=== PATIENT | female | born 1965 | race Caucasian/White ===

== ENCOUNTER 2019-01-12 09:57 | Emergency (ER) | payer BC ==
--- OUTSIDE RECORDS SUMMARY | 2019-01-12 10:06 | XMS REPORT | Continuity of Care Document ---
:1965 External Reference #:[id number] Author Name Adrienne Alcocer M.D. Address [address] [place] [address] Care Team Providers Name Role Phone Eliz Garcia RPAC Care Team Information Tafe Teacher Unavailable Eliz Garcia RPAC Primary Care Physician Unavailable Payers Date Identification Numbers Payment Provider Subscriber Expires: 2018 Policy Number: [id number] Annalee Baptsite Group Number: [id number] [address] PayID: [id number] [place] [id number] Policy Number: [id number] Annalee Padron Group Number: [id number] [address]: [id number] DE[place] Re[place] [id number] Expires: 2017 Policy Number: [id number] Annalee Baptiste Group Name: Annalee Rasmussen [facility] [address] PayID: [id number] [place] [id number] Problems Active Problems Provider Date Type 2 diabetes mellitus Charlie Myers FNP Onset: 12/08/2014 Note: ~2014 Benign essential hypertension Deyanira Bhagat NP Onset: 11/11/2011 Morbid obesity Charlie Myers FNP Onset: 12/06/2014 Hyperlipidemia Deyanira Bhagat NP Onset: 11/11/2011 Microscopic hematuria Eliz Garcia RPAC Onset: 02/26/2013 Note: (R) kidney calculus History of malignant neoplasm of tongue Eliz Garcia RPAC Onset: 2014 Note: SCC 2010 Steatosis of liver Eliz Garcia RPAC Onset: 03/19/2016 [facility]: 02/04/2017 Note: noted 2016, likely due to DM [facility] Onset: 03/19/2016 Note: extensive plaques Internal hemorrhoids [facility] Onset: 03/19/2016 Diverticulosis of colon without [facility] Onset: 03/19/2016 diverticulitis Methicillin resistant Staphylococcus aureus [facility] Onset: infection Note: 05/2016, groin wound Kidney stone Adrienne Alcocer M.D. Onset: 06/16/2017 Cholelithiasis without obstruction [facility] Onset: 06/30/2017 Note: noted on CT 06/2017 Lipoma of terminal spinal cord [facility] Onset: 08/14/2017 Note: noted 2016 Benign neoplasm of adrenal gland [facility] Onset: 06/26/2017 Note: left, noted 2012 Low back pain [facility] Onset: 09/29/2017 Note: sciatica (L) side, since 03/2017 Combined form of senile cataract Serafin Akers MD Onset: 10/23/2017 Tear film insufficiency Serafin Akers MD Onset: 10/23/2017 Abnormal liver function Onset: 11/03/2018 Inactive Problems Excessive and frequent menstruation Charlie Myers FNP Onset: 2013 Inactive: 03/19/2016 Resolved Problems Tobacco user Deyanira Bhagat, ANASTASIA Onset: 11/11/2011 Resolved: 03/19/2016 Family History Date Family Member(s) Observation Comments Father Colon Cancer Father Hypertension Father Alive Father Cataracts Mother Diabetes Mother Hypertension Mother Alive Mother Cataracts First Brother Diabetes required amputation First Brother CAD sudden at 41 yrs old First Sister Alive Social History Type Date Description Comments Sex Unknown Marital Status Occupation Disabled Tobacco Use Start: Unknown End: Quit 10/2015 Unknown ETOH Use Drinks Alcoholic Beverages Rarely Recreational Drug Use Denies Drug Use Tobacco Use Start: Unknown End: Patient is a former Smoked 3/4 ppd x 30 Unknown smoker years Quit 2 1/2 years ago Smoking Status Reviewed: 01/04/19 Patient is a former Smoked 3/4 ppd x 30 smoker years Quit 2 1/2 years ago Exercise Type/Frequency Exercises regularly Exercise Type/Frequency Physical Therapy Allergies, Adverse Reactions, Alerts Active Allergies Reaction Severity Comments Date Augmentin Total body rash 06/18/2017 Inactive Allergies NKDA 12/06/2014 Medications Active Medications SIG Qnty Indications Ordering Date Provider Rosuvastatin Calcium 1 by mouth every 30tabs Sanya, 11/03/2018 day MD Gregory 20mg Tablets Glipizide ER 1 tab by mouth Sanya, 11/03/2018 2.5mg tid MD Gregory Tablets ER 24HR Freestyle Lancets for one to three 100units Robbin Dawkins, 09/11/2018 Misc times a day use M.D. Freestyle Lancets for one to three 100units Robbin Dawkins, 09/11/2018 Misc times a day use M.D. Rosuvastatin Calcium 1 by mouth every 90tabs Robbin Dawkins, 06/16/2018 day M.D. 20mg Tablets Pioglitazone HCL 1 by mouth every 90tabs Robbin Dawkins, 08/04/2017 30mg day M.D. Tablets Metformin HCL take one tablet 180tabs DawkinsRobbin howell, 08/04/2017 1000mg by mouth twice a M.D. Tablets day Trulicity inject 1.5 ml 2ml Robbin Dawkins, 05/20/2017 0.75mg/0.5ML once weekly as M.D. Solution Pen-Inject directed Freestyle Lite Blood use as 1un Robbin Dawkins, 12/03/2016 Glucose Monitoring directed........ M.D. System .:::........dx Device e11.65 Glipizide ER take 1 tablet by 90tabs Robbin Dawkins, 12/03/2016 2.5mg mouth three M.D. Tablets ER 24HR times a day Benazepril HCL one by mouth 90tabs I10 Robbin Dawkins, 04/24/2011 40mg daily M.D. Tablets Ibuprofen 1 Tab Q 8 HR as Unknown 600mg Tablets Needed. History Medications Rollator Walker for daily 1units M47.896 Dawkins, 01/13/2018 - With use......... heavy Heidi Siegel 06/13/2018 Seat/ Hand Brake duty model Physical Therapy Cervicalgia, M54.2 Dawkins, 10/20/2017 - please evaluate Heidi Siegel 12/03/2017 and treat Terconazole For intravaginal 20gm Dawkins, 06/17/2017 - 0.8% Cream use qhs X 3 nights Heidi Siegel Unknown Fluconazole 1 tab by mouth 1tabs Dawkins, 06/17/2017 - 150mg today for yeast Heidi Siegel Unknown Tablets vaginitis Amoxicillin/Clavulana 1 tab by mouth 14tabs J34.0 Dawkins, 06/03/2017 - te Potassium every 12 hours Heidi Siegel 06/18/2017 875-125mg with food Tablets Cyclobenzaprine HCL 1 by mouth three Dawkins, 05/06/2017 - times a day as Heidi Siegel Unknown 10mg Tablets needed muscle spasms Work Note please excuse from M62.830 Dawkins, 05/06/2017 - work due to Heidi Siegel 06/13/2018 ongoing back and leg pain...pain treatments ongoing. recheck in 8 weeks Freestyle Lite Test to check finger 100units Juancho, 12/03/2016 - stick glucose, one Heidi Siegel 05/06/2017 Strips - three times a day as needed Freestyle Lancets for one to three 100units Juancho, 12/03/2016 - Misc times a day use Heidi Siegel 05/06/2017 Lancet Device for daily use 1units Juancho, 12/03/2016 - Misc Heidi Siegel 05/06/2017 Note For Work Allow Vivek to have Juancho, 11/26/2016 - water bottle at Heidi Siegel 05/06/2017 work station Metformin HCL ER 1 tab by mouth 60tabs Dawkins, 07/24/2016 - 750mg twice a day Heidi Siegel 08/04/2017 Tablets ER 24HR Simvastatin 1 by mouth every 90tabs E78.5 Dawkins, 07/18/2015 - 40mg day...on hold Barry Siegel. Unknown Tablets 01/2017 Metformin HCL take one tablet by [place] 12/08/2014 - 500mg mouth once a day E., DO 07/24/2016 Tablets Cyclobenzaprine HCL 1 by mouth three Unknown - times a day as Unknown 10mg Tablets needed muscle spasms Fluconazole 1 by mouth every Unknown - 100mg day until gone 06/17/2017 Tablets Immunizations CPT Code Status Date Vaccine Reaction Lot # 43199 Given 06/12/2018 Influenza Virus Vaccine, Quadrivalent, 36 [id number] Mos+, .[id number] 39602 Given 06/30/2017 Influenza Virus Vaccine Quadrivalent Iiv4 none [id number] [address] Given 07/23/2016 Influenza Virus Vaccine Split Virus Use [id number] For Individual 3Yr Older [id number] Given 07/18/2015 Influenza Vaccine (Fluzone) Age 3 And [id number] Older 31120 Given 09/06/2014 flu vaccination 47231 Given 09/24/2013 flu vaccination 90934 Given 06/11/2005 Tetnus Injection 87413 Given 03/03/1995 DT Vaccine Younger Than 7 Yrs Vital Signs Date Vital Result Comment 01/12/2019 9:16am BP Systolic 123 mmHg BP Diastolic 76 mmHg Body Temperature 98.5 F Heart Rate 90 /min Respiratory Rate 20 /min Height 61.5 inches 5'1.50" Weight 301.50 lb BMI (Body Mass Index) 56.0 kg/m2 BSA (Body Surface Area) 2.26 m2 [place] body weight in kilograms 49 kg O2 % BldC Oximetry 92 % Ra Pain Level 0 12/15/2018 1:05pm Heart Rate 88 /min Height 61.5 inches Weight 299.50 lb BMI (Body Mass Index) 55.7 kg/m2 11/19/2018 2:49pm BP Systolic 146 mmHg BP Diastolic 80 mmHg Heart Rate 79 /min Weight 303.25 lb 11/03/2018 2:55pm Heart Rate 92 /min Height 61.5 inches Weight 302.00 lb BMI (Body Mass Index) 56.1 kg/m2 09/11/2018 10:01am BP Systolic Sitting Left Arm 118 mmHg BP Diastolic Sitting Left Arm 78 mmHg Body Temperature 98.3 F Heart Rate 83 /min Respiratory Rate 20 /min Height 60 inches 5'0" Weight 293.00 lb BMI (Body Mass Index) 57.2 kg/m2 BSA (Body Surface Area) 2.20 m2 [place] body weight in kilograms 45 kg O2 % BldC Oximetry 96 % Ra 06/12/2018 10:47am BP Systolic 175 mmHg BP Diastolic 78 mmHg Body Temperature 97.8 F Heart Rate 101 /min Respiratory Rate 18 /min Height 60 inches 5'0" Weight 289.00 lb BMI (Body Mass Index) 56.4 kg/m2 BSA (Body Surface Area) 2.18 m2 [place] body weight in kilograms 45 kg O2 % BldC Oximetry 95 % 03/02/2018 11:27am BP Systolic Sitting Right Arm 126 mmHg BP Diastolic Sitting Right Arm 78 mmHg Heart Rate 82 /min reg Respiratory Rate 24 /min Height 60 inches 5'0" Weight 282.00 lb BMI (Body Mass Index) 55.1 kg/m2 BSA (Body Surface Area) 2.16 m2 [place] body weight in kilograms 45 kg O2 % BldC Oximetry 98 % ra 01/13/2018 11:33am BP Systolic Sitting Right Arm 136 mmHg BP Diastolic Sitting Right Arm 62 mmHg Body Temperature 98.5 F Heart Rate 100 /min reg Respiratory Rate 30 /min Height 60 inches 5'0" Weight 281.00 lb BMI (Body Mass Index) 54.9 kg/m2 BSA (Body Surface Area) 2.16 m2 [place] body weight in kilograms 45 kg O2 % BldC Oximetry 98 % ra 01/13/2018 9:36am BP Systolic 133 mmHg BP Diastolic 83 mmHg Body Temperature 99.3 F Heart Rate 78 /min Respiratory Rate 16 /min Height 60 inches 5'0" Weight 282.00 lb BMI (Body Mass Index) 55.1 kg/m2 BSA (Body Surface Area) 2.16 m2 [place] body weight in kilograms 45 kg O2 % BldC Oximetry 96 % Pain Level 0 01/13/2018 9:28am Height 60 inches 5'0" Weight 282.00 lb BMI (Body Mass Index) 55.1 kg/m2 BSA (Body Surface Area) 2.16 m2 [place] body weight in kilograms 45 kg Pain Level 0 12/01/2017 12:20pm BP Systolic Sitting Left Arm 132 mmHg BP Diastolic Sitting Left Arm 67 mmHg Body Temperature 98.2 F Heart Rate 83 /min Respiratory Rate 20 /min Height 60 inches 5'0" Weight 273.00 lb BMI (Body Mass Index) 53.3 kg/m2 BSA (Body Surface Area) 2.13 m2 [place] body weight in kilograms 45 kg O2 % BldC Oximetry 95 % 10/20/2017 10:18am BP Systolic Sitting Left Arm 130 mmHg BP Diastolic Sitting Left Arm 78 mmHg Heart Rate 76 /min Height 60 inches 5'0" Weight 270.00 lb BMI (Body Mass Index) 52.7 kg/m2 BSA (Body Surface Area) 2.12 m2 [place] body weight in kilograms 45 kg O2 % BldC Oximetry 97 % 09/08/2017 11:06am BP Systolic Sitting Right Arm 110 mmHg BP Diastolic Sitting Right Arm 70 mmHg Heart Rate 79 /min Weight 262.00 lb [place] body weight in kilograms 504 kg O2 % BldC Oximetry 97 % 07/28/2017 10:12am BP Systolic 138 mmHg BP Diastolic 94 mmHg Heart Rate 84 /min Respiratory Rate 16 /min Weight 264.00 lb O2 % BldC Oximetry 98 % 06/30/2017 11:03am BP Systolic Sitting Left Arm 138 mmHg BP Diastolic Sitting Left Arm 76 mmHg Heart Rate 81 /min Respiratory Rate 24 /min Weight 263.00 lb O2 % BldC Oximetry 98 % 06/16/2017 1:32pm BP Systolic 144 mmHg BP Diastolic 85 mmHg Body Temperature 98.3 F 36.8c Heart Rate 105 /min Respiratory Rate 20 /min Weight 263.50 lb O2 % BldC Oximetry 96 % 06/03/2017 11:40am BP Systolic Sitting Right Arm 138 mmHg BP Diastolic Sitting Right Arm 82 mmHg Heart Rate 79 /min Respiratory Rate 18 /min Height 60 inches 5'0" Weight 262.00 lb BMI (Body Mass Index) 51.2 kg/m2 BSA (Body Surface Area) 2.09 m2 [place] body weight in kilograms 45 kg O2 % BldC Oximetry 96 % 05/20/2017 10:11am BP Systolic Sitting Right Arm 148 mmHg BP Diastolic Sitting Right Arm 100 mmHg Heart Rate 86 /min Respiratory Rate 18 /min Height 60 inches 5'0" Weight 256.00 lb BMI (Body Mass Index) 50.0 kg/m2 BSA (Body Surface Area) 2.07 m2 [place] body weight in kilograms 45 kg O2 % BldC Oximetry 98 % 05/06/2017 12:04pm BP Systolic Sitting Right Arm 138 mmHg BP Diastolic Sitting Right Arm 86 mmHg Heart Rate 80 /min Height 60 inches 5'0" Weight 258.00 lb BMI (Body Mass Index) 50.4 kg/m2 BSA (Body Surface Area) 2.08 m2 [place] body weight in kilograms 45 kg O2 % BldC Oximetry 97 % ra 04/25/2017 2:09pm BP Systolic Sitting Right Arm 130 mmHg BP Diastolic Sitting Right Arm 78 mmHg Heart Rate 97 /min Height 60 inches 5'0" Weight 258.00 lb BMI (Body Mass Index) 50.4 kg/m2 BSA (Body Surface Area) 2.08 m2 [place] body weight in kilograms 45 kg O2 % BldC Oximetry 98 % Ra 02/04/2017 11:12am BP Systolic Sitting Right Arm 138 mmHg BP Diastolic Sitting Right Arm 78 mmHg Heart Rate 90 /min Height 60 inches 5'0" Weight 256.12 lb BMI (Body Mass Index) 50.0 kg/m2 BSA (Body Surface Area) 2.07 m2 [place] body weight in kilograms 45 kg O2 % BldC Oximetry 98 % 11/26/2016 9:28am BP Systolic Sitting Right Arm 138 mmHg BP Diastolic Sitting Right Arm 72 mmHg Height 60 inches 5'0" Weight 261.12 lb BMI (Body Mass Index) 51.0 kg/m2 BSA (Body Surface Area) 2.09 m2 07/23/2016 10:21am BP Systolic Sitting Right Arm 172 mmHg BP Diastolic Sitting Right Arm 92 mmHg Height 60 inches 5'0" Weight 265.12 lb BMI (Body Mass Index) 51.8 kg/m2 BSA (Body Surface Area) 2.10 m2 03/19/2016 9:14am BP Systolic 134 mmHg BP Diastolic 74 mmHg Height 60 inches 5'0" Weight 260.12 lb BMI (Body Mass Index) 50.8 kg/m2 BSA (Body Surface Area) 2.09 m2 07/18/2015 8:54am BP Systolic 144 mmHg BP Diastolic 82 mmHg Height 60 inches 5'0" Weight 243.12 lb BMI (Body Mass Index) 47.5 kg/m2 BSA (Body Surface Area) 2.03 m2 03/21/2015 9:26am BP Systolic 136 mmHg BP Diastolic 78 mmHg Height 60 inches 5'0" Weight 242.00 lb BMI (Body Mass Index) 47.3 kg/m2 BSA (Body Surface Area) 2.02 m2 12/06/2014 9:16am BP Systolic Sitting Left Arm 128 mmHg BP Diastolic Sitting Left Arm 72 mmHg Height 60 inches 5'0" Weight 249.00 lb BMI (Body Mass Index) 48.6 kg/m2 BSA (Body Surface Area) 2.05 m2 09/06/2014 9:05am BP Systolic 126 mmHg BP Diastolic 76 mmHg Body Temperature 98.2 F Weight 248.00 lb 02/22/2014 10:15am BP Systolic 126 mmHg BP Diastolic 76 mmHg Heart Rate 80 /min Respiratory Rate 18 /min Height 61 inches 5'1" Weight 245.00 lb 08/31/2013 11:19am BP Systolic 103 mmHg BP Diastolic 88 mmHg Height 60 inches 5'0" Weight 249.00 lb 12/21/2012 4:10pm Height 61 inches 5'1" Weight 240.00 lb 12/21/2012 4:12pm BP Systolic 124 mmHg BP Diastolic 74 mmHg 11/20/2012 11:36am BP Systolic 118 mmHg BP Diastolic 74 mmHg Heart Rate 88 /min Respiratory Rate 18 /min Height 61 inches 5'1" Weight 238.00 lb 10/20/2012 1:14pm Height 60 inches 5'0" Weight 234.00 lb 10/06/2012 9:47am Height 60 inches 5'0" Weight 236.00 lb 09/21/2012 4:30pm BP Systolic 126 mmHg BP Diastolic 74 mmHg Height 60 inches 5'0" Weight 236.00 lb 11/11/2011 4:19pm BP Systolic 134 mmHg BP Diastolic 86 mmHg Height 60 inches 5'0" Weight 217.00 lb 05/07/2011 11:06am BP Systolic 128 mmHg BP Diastolic 76 mmHg Height 60 inches 5'0" Weight 198.00 lb Results Test Date Facility Test Result H/L Range Note Urine Dipstick 01/12/2019 [facility] Color yellow Yellow Ua Clarity clear Clear Ua Leuko negative Negative Ua Nitrite negative Negative Ua Urobilinogen 0.2 0.2 - 1.0 E.U./dL Ua Protein negatove Negative Ua PH 6.0 Low 6.5-7.5 Ua Blood negative Negative Ua Specific [place] 1.015 1.010-1.030 Ua Ketones negative Negative Ua Bilirubin negative Negative Ua Glucose negative Negative Xray 12/22/2018 [facility] - Radiology Gallbladder stones [address] ([place]) [place] [address] [phone] Urine Dipstick 09/11/2018 [facility] Ua Color yellow Yellow Ua Clarity clear Clear Ua Leuko negative Negative Ua Nitrite negative Negative Ua Urobilinogen 0.2 0.2 - 1.0 E.U./dL Ua Protein negative Negative Ua PH 5.0 Low 6.5-7.5 Ua Blood negative Negative Ua Specific [place] 1.020 1.010-1.030 Ua Ketones negative Negative Ua Bilirubin negative Negative Ua Glucose negative Negative LDL Cholesterol 09/11/2018 [facility] Cholesterol 154 mg/dL <200 1, 2 Profile [address] [place] [address] [phone] Triglycerides 137 mg/dL <150 3 HDL Cholesterol 61 mg/dL >40 4 LDL-Cholesterol 66 mg/dL < 100 5 Liver Function Tests 09/11/2018 [facility] Total Protein 7.3 g/dL N 6.4-8.2 [address] [place] [address] [phone] Albumin 3.7 g/dL N 3.4-5.0 Globulin 3.6 g/dL N 1.9-4.3 Alb/Glob 1.0 ratio Bilirubin,Total 0.4 mg/dL N 0.2-1.0 Bilirubin,Direct 0.1 mg/dL N 0.0-0.2 Bilirubin,Indirect 0.3 mg/dL N 0.0-0.9 Sgot/Ast 33 U/L N 15-37 SGPT/Alt 44 U/L N 12-78 Alkaline Phosphatase 73 U/L N 45-117 Renal Function Panel 09/11/2018 [facility] Glucose 183 mg/dL High 74-106 [address] [place] [address] [phone] BUN 9 mg/dL N 7-18 Creatinine 0.7 mg/dL N 0.6-1.3 Glom Filtration Rate, Estimate >60 mL/min >60 If >60 mL/min >60 6 BUN/Creat 12.8 ratio Sodium 139 mmol/L N 136-145 Potassium 4.3 mmol/L N 3.5-5.1 Chloride 105 mmol/L N 98-107 Carbon Dioxide 28 mmol/L N 21-32 Anion Gap 6 mEq/L Low 8-16 Calcium 9.0 mg/dL N 8.5-10.1 Phosphorous 4.3 mg/dL High 2.5-4.0 Glycohemoglobin 09/11/2018 [facility] Glycohemoglobin 7.1 % High 4.2-6.[address] (A1c) [place] [address] [phone] eAG 157 mg/dL Microalbumin,Random 09/11/2018 [facility] Microalbumin,Urine 9.4 < Urine [address] mg/L 20.0 [place] [address] [phone] LDL Cholesterol 06/12/2018 [facility] Cholesterol 218 High <200 8, Profile [address] mg/dL 9 [place] [address] [phone] Triglycerides 250 mg/dL High <150 10 HDL Cholesterol 55 mg/dL >40 11 LDL-Cholesterol 113 mg/dL < 100 12 Liver Function Tests 06/12/2018 [facility] Total Protein 7.3 g/dL N 6.4-8.[address] [place] [address] [phone] Albumin 3.7 g/dL N 3.4-5.0 Globulin 3.6 g/dL N 1.9-4.3 Alb/Glob 1.0 ratio Bilirubin,Total 0.5 mg/dL N 0.2-1.0 Bilirubin,Direct 0.1 mg/dL N 0.0-0.2 Bilirubin,Indirect 0.4 mg/dL N 0.0-0.9 Sgot/Ast 29 U/L N 15-37 SGPT/Alt 56 U/L N 12-78 Alkaline Phosphatase 80 U/L N 45-117 Renal Function Panel 06/12/2018 [facility] Glucose 191 mg/dL High 74-[address] [place] [address] [phone] BUN 14 mg/dL N 7-18 Creatinine 0.7 mg/dL N 0.6-1.3 Glom Filtration Rate, Estimate >60 mL/min >60 If >60 mL/min >60 13 BUN/Creat 20.0 ratio Sodium 141 mmol/L N 136-145 Potassium 4.1 mmol/L N 3.5-5.1 Chloride 105 mmol/L N 98-107 Carbon Dioxide 27 mmol/L N 21-32 Anion Gap 9 mEq/L N 8-16 Calcium 9.1 mg/dL N 8.5-10.1 Phosphorous 3.6 mg/dL N 2.5-4.0 Glycohemoglobin 06/12/2018 [facility] Glycohemoglobin 6.8 % High 4.2-6.3 [address] (A1c) [place], [place] [id number] [phone] eAG 148 mg/dL Urine Dipstick 06/12/2018 [facility] Ua Color Yellow Yellow Ua Clarity Clear Clear Ua Leuko Negative Negative Ua Nitrite Negative Negative Ua Urobilinogen - Low 0.2 - 1.0 E.U./dL Ua Protein Negative Negative Ua PH 5.0 Low 6.5-7.5 Ua Blood Negative Negative Ua Specific [place] 1.030 1.010-1.030 Ua Ketones Negative Negative Ua Bilirubin Negative Negative Ua Glucose Negative Negative Creatinine 03/09/2018 [facility] Creatinine 0.60 mg/ dL N 0.51-0.95 [phone] Egfr Non- 105.0 >60 Egfr 127.0 >60 15 Laboratory test 03/09/2018 [facility] Blood Urea 11 N 6-24 finding [phone] Nitrogen mg/dL Glycohemoglobin 01/17/2018 [facility] Glycohemoglobin 7.1 % High 4.2-6. 16, A1c [address] (A1c) 3 17 [place], [place] [id number] [phone] eAG 157 mg/dL Basic Metabolic Panel 01/17/2018 [facility] Glucose 116 mg/dL High 74-[address] [place], [place] [id number] [phone] BUN 8 mg/dL N 7-18 Creatinine 0.6 mg/dL N 0.6-1.3 Glom Filtration Rate, Estimate >60 mL/min >60 If >60 mL/min >60 18 BUN/Creat 13.3 ratio Sodium 139 mmol/L N 136-145 Potassium 4.0 mmol/L N 3.5-5.1 Chloride 106 mmol/L N 98-107 Carbon Dioxide 26 mmol/L N 21-32 Anion Gap 7 mEq/L Low 8-16 Calcium 9.6 mg/dL N 8.5-10.1 Laboratory test 01/17/2018 [facility] Thyroid Stim 1.72 uIU/mL N 0.30-4.[address] [place] [address] [phone] Liver Function 01/17/2018 [facility] Total Protein 7.7 g/dL N 6.4-8.[address] [place] [address] [phone] Albumin 3.7 g/dL N 3.4-5.0 Globulin 4.0 g/dL N 1.9-4.3 Alb/Glob 0.9 ratio Bilirubin,Total 0.3 mg/dL N 0.2-1.0 Bilirubin,Direct 0.1 mg/dL N 0.0-0.2 Bilirubin,Indirect 0.2 mg/dL N 0.0-0.9 Sgot/Ast 44 U/L High 15-37 SGPT/Alt 66 U/L N 12-78 Alkaline Phosphatase 72 U/L N 45-117 Microalbumin,Random 01/13/2018 [facility] Microalbumin,Urine 7.7 mg/L < 20.0 Urine [address] [place] [address] [phone] Urine Dipstick 01/13/2018 [facility] Ua Color yellow Yellow Ua Clarity clear Clear Ua Leuko negative Negative Ua Nitrite negative Negative Ua Urobilinogen 0.2 0.2 - 1.0 E.U./dL Ua Protein negative Negative Ua PH 5.0 Low 6.5-7.5 Ua Blood negative Negative Ua Specific [place] 1.030 1.010-1.030 Ua Ketones negative Negative Ua Bilirubin negative Negative Ua Glucose negative Negative Glycohemoglobin 10/20/2017 [facility] Glycohemoglobin 7.9 % High 4.2-6.3 19, A1c [address] (A1c) [address] [place] [address] [phone] eAG 180 mg/dL Renal Function Panel 10/20/2017 [facility] Glucose 131 mg/dL High 74-[address] [place] [address] [phone] BUN 9 mg/dL N 7-18 Creatinine 0.5 mg/dL Low 0.6-1.3 Glom Filtration Rate, Estimate >60 mL/min >60 If >60 mL/min >60 21 BUN/Creat 18.0 ratio Sodium 140 mmol/L N 136-145 Potassium 4.8 mmol/L N 3.5-5.1 Chloride 108 mmol/L High 98-107 Carbon Dioxide 24 mmol/L N 21-32 Anion Gap 8 mEq/L N 8-16 Calcium 9.3 mg/dL N 8.5-10.1 Phosphorous 4.2 mg/dL High 2.5-4.0 Homocyst(E)Ine, 10/20/2017 [facility] Homocyst(e)ine, 7.6 0.0-15.0 22 P/S [address] [facility] P/S umol/[place] [address] [phone] Laboratory test 10/20/2017 [facility] Gamma Glutamyl 74 U/L N 5-85 23 finding [address] [facility] [place] [address] [phone] Liver Function 10/20/2017 [facility] Total Protein 7.1 g/dL N 6.4-8.2 Tests [address] [place] [address] [phone] Albumin 3.5 g/dL N 3.4-5.0 Globulin 3.6 g/dL N 1.9-4.3 Alb/Glob 1.0 ratio Bilirubin,Total 0.3 mg/dL N 0.2-1.0 Bilirubin,Direct < 0.1 mg/dL N 0.0-0.2 Bilirubin,Indirect 0.2 mg/dL N 0.0-0.9 Sgot/Ast 49 U/L High 15-37 SGPT/Alt 78 U/L N 12-78 Alkaline Phosphatase 74 U/L N 45-117 LDL Cholesterol 10/20/2017 [facility] Cholesterol 222 mg/dL High <200 24 Profile [address] [place] [address] [phone] Triglycerides 185 mg/dL High <150 25 HDL Cholesterol 73 mg/dL >40 26 LDL-Cholesterol 112 mg/dL < 100 27 Comprehensive 07/28/2017 [facility] Glucose 222 mg/dL High 74-106 28 Metabolic Panel [address] [place] [address] [phone] BUN 9 mg/dL N 7-18 Creatinine 0.6 mg/dL N 0.6-1.3 Glom Filtration Rate, Estimate >60 mL/min >60 If >60 mL/min >60 29 BUN/Creat 15.0 ratio Sodium 137 mmol/L N 136-145 Potassium 4.5 mmol/L N 3.5-5.1 Chloride 104 mmol/L N 98-107 Carbon Dioxide 27 mmol/L N 21-32 Anion Gap 6 mEq/L Low 8-16 Calcium 9.4 mg/dL N 8.5-10.1 Total Protein 6.9 g/dL N 6.4-8.2 Albumin 3.5 g/dL N 3.4-5.0 Globulin 3.4 g/dL N 1.9-4.3 Alb/Glob 1.0 ratio Bilirubin,Total 0.3 mg/dL N 0.2-1.0 Sgot/Ast 102 U/L High 15-37 SGPT/Alt 169 U/L High 12-78 Alkaline Phosphatase 87 U/L N 45-117 Glycohemoglobin 07/28/2017 [facility] Glycohemoglobin 8.8 % High 4.2-6.3 30 A1c [address] (A1c) [place] [address] [phone] eAG 206 mg/dL Laboratory test 07/28/2017 [facility] Gamma Glutamyl 125 U/L High 5-85 finding [address] [facility] [place] [address] [phone] Ua Routine 06/16/2017 [facility] Urine Color YELLOW Yellow [address] [place] [address] [phone] Urine Clarity CLEAR Clear Urine Glucose - Dipstick >=1000 mg/dL High Negative Urine Bilirubin - Dipstick NEGATIVE Negative Urine Ketone TRACE mg/dL High Negative Urine Specific [place] 1.020 N 1.010-1.030 Urine Blood SMALL Abnormal Negative Urine PH 5.5 Low 6.5-7.5 Urine Protein - Dipstick NEGATIVE mg/dL Negative Urine Urobilinogen - Dipstick 0.2 E.U./dL N 0.2-1.0 Urine Nitrite - Dipstick NEGATIVE Negative Urine Leuk Esterase NEGATIVE Negative Urine RBC 0-2 rbc/hpf 0-2 Urine WBC 0-2 wbc/hpf 0-7 Urine Epithelial Cells MODERATE /lpf None Seen 31 Urine Calcium Oxalate Crystals FEW None Seen Urine Bacteria MODERATE Abnormal None Seen Urine Yeast VERY FEW None Seen Source: URINE, CLEAN CAT <SEE NOTE> 32 Liver Function 05/15/[address] Total Protein 7.8 g/dL N 6.4- 8.2 [address] [place] [address] [phone] Albumin 3.8 g/dL N 3.4-5.0 Globulin 4.0 g/dL N 1.9-4.3 Alb/Glob 1.0 ratio Bilirubin,Total 0.4 mg/dL N 0.2-1.0 Bilirubin,Direct < 0.1 mg/dL N 0.0-0.2 Bilirubin,Indirect 0.3 mg/dL N 0.0-0.9 Sgot/Ast 49 U/L High 15-37 SGPT/Alt 100 U/L High 12-78 Alkaline Phosphatase 96 U/L N 45-117 Laboratory test 05/15/[address] Gamma Glutamyl 101 U/L High 5 -[address] [place] [address] Transpeptidase [place], [place] [id number] [phone] LDL Cholesterol 05/15/[address] Cholesterol 228 High <200 [address] [place] [address] mg/[place] [address] [phone] Triglycerides 248 mg/dL High <150 35 HDL Cholesterol 50 mg/dL >40 36 LDL-Cholesterol 128 mg/dL < 100 37 Renal Function Panel 05/15/[address] Glucose 231 mg/dL High 74-[address] [place] [address] [phone] BUN 11 mg/dL N 7-18 Creatinine 0.6 mg/dL N 0.6-1.3 Glom Filtration Rate, Estimate >60 mL/min >60 If >60 mL/min >60 38 BUN/Creat 18.3 ratio Sodium 137 mmol/L N 136-145 Potassium 4.4 mmol/L N 3.5-5.1 Chloride 103 mmol/L N 98-107 Carbon Dioxide 26 mmol/L N 21-32 Anion Gap 8 mEq/L N 8-16 Calcium 9.6 mg/dL N 8.5-10.1 Phosphorous 3.9 mg/dL N 2.5-4.0 Glycohemoglobin 05/15/2017 [facility] [address] Glycohemoglobin 8.7 % High 4.2-6.3 [address] (A1c) [place], [place] [id number] [phone] eAG 203 mg/dL Liver Function 02/04/2017 [facility] Total Protein 7.3 g/dL N 6.4-8.2 [address] [place] [address] [phone] Albumin 3.7 g/dL N 3.4-5.0 Globulin 3.6 g/dL N 1.9-4.3 Alb/Glob 1.0 ratio Bilirubin,Total 0.3 mg/dL N 0.2-1.0 Bilirubin,Direct 0.1 mg/dL N 0.0-0.2 Bilirubin,Indirect 0.2 mg/dL N 0.0-0.9 Sgot/Ast 83 U/L High 15-37 SGPT/Alt 98 U/L High 12-78 Alkaline Phosphatase 107 U/L N 45-117 Hepatitis 02/04/2017 [facility] Hepatitis A Negative Negative Evaluation [address] [place] [place] [address] [phone] HBsAg Screen [Ref Lab] Negative Negative Hepatitis B Core IgM Negative Negative Signal/Cutoff ratio 0.1 s/corat 0.0-0.9 41 Laboratory test 02/04/2017 [facility] Gamma Glutamyl 109 High 5-[address] Transpeptidase U/[place] [address] [phone] Glycohemoglobin 02/04/2017 [facility] Glycohemoglobin 9.4 % High 4.2-6.[address] (A1c) [place] [address] [phone] eAG 223 mg/dL Alp SerPl-cCnc 02/04/2017 N2N/CCD Import Alp SerPl-cCnc 107 45-117 Alt SerPl-cCnc 02/04/2017 N2N/CCD Import Alt SerPl-cCnc 98 High 12-78 Albumin SerPl-mCnc 02/04/2017 N2N/CCD Import Albumin SerPl-mCnc 3.7 3.4- 5.0 Serum or plasma 02/04/2017 N2N/CCD Import Serum or plasma 0.3 0.2-1.0 total bilirubin total bilirubin measurement (mass/ measurement (mass/volume) Albumin/Glob SerPl 02/04/2017 N2N/CCD Import Albumin/Glob SerPl 1.0 Aspartate 02/04/2017 N2N/CCD Import Aspartate 83 High 15-37 aminotransferase aminotransferase [Enzymatic [Enzymatic activity/vol activity/volume] in Serum or Plasma Blood glucose mean 02/04/2017 N2N/CCD Import Blood glucose mean 223 value measurement value measurement estimated fro estimated from glycated hemoglobin (mass/volume) Globulin Ser 02/04/2017 N2N/CCD Import Globulin Ser 3.6 1.9-4.3 Calc-[facility] Calc-mCnc HAV IgM ab ser Ia 02/04/2017 N2N/CCD Import HAV IgM ab ser Ia Negative Negative QL QL HBcAb IgM 02/04/2017 N2N/CCD Import HBcAb IgM Negative Negative Hepatitis B virus 02/04/2017 N2N/CCD Import Hepatitis B virus Negative Negative surface Ag surface Ag [Presence] in Serum [Presence] in o Serum or Plasma by Immunoassay Hepatitis C virus 02/04/2017 N2N/CCD Import Hepatitis C virus 0.1 0.0- 0.9 Ab Signal/Cutoff in Ab Signal/Cutoff Serum or [place] in Serum or Plasma by Immunoassay Hgb A1c MFr Bld 02/04/2017 N2N/CCD Import Hgb A1c MFr Bld 9.4 High 4.2- 6.3 Prot SerPl-mCnc 02/04/2017 N2N/CCD Import Prot SerPl-mCnc 7.3 6.4-8.2 Serum or plasma 02/04/2017 N2N/CCD Import Serum or plasma 0.1 0.0-0.2 direct bilirubin direct bilirubin measurement (mass measurement (mass/volume) Serum or plasma 02/04/2017 N2N/CCD Import Serum or plasma 109 High 5-85 gamma glutamyl gamma glutamyl transferase measure transferase measurement (enzymatic activity/volume) Serum or plasma 02/04/2017 N2N/CCD Import Serum or plasma 0.2 0.0-0.9 indirect bilirubin indirect bilirubin measurement (ma measurement (mass/volume) Microalbumin,Random 11/26/2016 [facility] Microalbumin,Urine 37.3 mg/L < 20.0 [address] [place], [place] [id number] [phone] Laboratory test 11/26/2016 [facility] Ketones, Serum NEGATIVE Negative 44 finding [address] [place] [address] [phone] Basic Metabolic 11/26/2016 [facility] Glucose 318 mg/dL High 74-106 Panel [address] [place] [address] [phone] BUN 13 mg/dL N 7-18 Creatinine 0.6 mg/dL N 0.6-1.3 Glom Filtration Rate, Estimate >60 mL/min >60 If >60 mL/min >60 45 BUN/Creat 21.6 ratio Sodium 138 mmol/L N 136-145 Potassium 4.5 mmol/L N 3.5-5.1 Chloride 103 mmol/L N 98-107 Carbon Dioxide 26 mmol/L N 21-32 Anion Gap 9 mEq/L N 8-16 Calcium 9.2 mg/dL N 8.5-10.1 Glycohemoglobin 11/26/2016 [facility] Glycohemoglobin 10.0 % High 4.2-6.3 46 A1c [address] [facility] (A1c) [place] [address] [phone] eAG 240 mg/dL Liver Function Tests 11/26/2016 [facility] Total Protein 7.0 g/dL N 6.4-8.2 [address] [place] [address] [phone] Albumin 3.8 g/dL N 3.4-5.0 Globulin 3.2 g/dL N 1.9-4.3 Alb/Glob 1.2 ratio Bilirubin,Total 0.3 mg/dL N 0.2-1.0 Bilirubin,Direct < 0.1 mg/dL N 0.0-0.2 Bilirubin,Indirect 0.2 mg/dL N 0.0-0.9 Sgot/Ast 108 U/L High 15-37 SGPT/Alt 104 U/L High 12-78 Alkaline Phosphatase 99 U/L N 45-117 LDL Cholesterol Profile 11/26/2016 [facility] Cholesterol 178 mg/dL <200 47 [address] [place] [address] [phone] Triglycerides 323 mg/dL High <150 48 HDL Cholesterol 43 mg/dL >40 49 LDL-Cholesterol 70 mg/dL < 100 50 CBS W/Automated 07/23/2016 [facility] White Blood 8.0 K/uL N 3.1-10.[address] [place] [address] [phone] Red Blood Count 4.74 M/uL N 3.90-5.40 Hemoglobin 13.8 gm/dL N 11.6-15.8 Hematocrit 40.9 % N 36.0-46.1 Mean Cell Volume 86.3 fl N 80.9-99.0 Mean Corpuscular HGB 29.1 pg N 25.9-32.7 Mean Corpuscular HGB Conc 33.7 g/dL N 30.8-34.3 Platelet Count 215 K/uL N 155-360 Red Cell Distri Width SD 42.3 fl N 3-47 Red Cell Distri Width %CV 13.8 % N 11.7-14.4 Mean Platelet Volume 11.8 fL N 8.9-12.4 Neut% 71.6 % N 40.4-72.8 Lymph % 21.4 % N 17.0-46.1 [place] % 4.6 % N 4.3-13.2 Eo% 2.0 % N 0.0-6.6 Bas% 0.4 % N 0.0-1.1 Neut# 5.74 K/uL N 1.8-7.0 Lymph # 1.72 K/uL Low 1.8-7.0 [place] # 0.37 K/uL N 0.3-0.9 Eos # 0.16 K/uL N 0.0-0.5 Baso # 0.03 K/uL N 0.0-0.1 Renal Function Panel 07/23/2016 [facility] Glucose 290 mg/dL High 74-[address] [place] [address] [phone] BUN 10 mg/dL N 7-18 Creatinine 0.6 mg/dL N 0.6-1.3 Glom Filtration Rate, Estimate >60 mL/min N >60 If >60 mL/min N >60 52 BUN/Creat 16.6 ratio N Sodium 137 mmol/L N 136-145 Potassium 4.1 mmol/L N 3.5-5.1 Chloride 103 mmol/L N 98-107 Carbon Dioxide 27 mmol/L N 21-32 Anion Gap 7 mEq/L Low 8-16 Calcium 8.7 mg/dL N 8.5-10.1 Phosphorous 3.4 mg/dL N 2.5-4.0 Albumin 3.6 g/dL N 3.4-5.0 Glycohemoglobin 07/23/2016 [facility] Glycohemoglobin 8.8 % High 4.2-6.3 [address] (A1c) [place] [address] [phone] eAG 206 mg/dL N Microalbumin,Random 07/23/2016 [facility] Microalbumin,Urine 9.5 N < 20.0 [address] mg/L [place], [place] [id number] [phone] [id number] 05/25/2016 [facility] Oxacillin >=[address] [place] [address] [phone] Tetracycline <=1 S Trimethoprim/Sulfamethoxazole <=10 S Erythromycin >=8 R Clindamycin <=0.25 S 55 Ciprofloxacin >=8 R Moxifloxacin 2 S Levofloxacin 4 I Vancomycin <=0.5 S Routine Culture 05/23/2016 [facility] Gram Stain FEW GRAM POSITIV N 56, 57 W/ Gram Stain [address] <SEE NOTE> [place] [address] [phone] Gram Stain RARE WHITE BLOOD <SEE NOTE> N 58 Gram Stain RARE EPITHELIAL <SEE NOTE> N 59 Aerobic Culture METHICILLIN RESI <SEE NOTE> Abnormal 60 Quantity MANY N Aspartate Amino 03/19/2016 N2N/CCD Import Aspartate Amino Transf 33 15- 37 Transf (Ast/Sgot) (Ast/Sgot) Cholesterol Level 03/19/2016 N2N/CCD Import Cholesterol Level 168 <200 Estimated Average 03/19/2016 N2N/CCD Import Estimated Average 163 Glucose (eAG) Glucose (eAG) HDL Cholesterol 03/19/2016 N2N/CCD Import HDL Cholesterol 49 >40 Indirect Bilirubin 03/19/2016 N2N/CCD Import Indirect Bilirubin 0.3 0.0- 0.9 Laboratory test 03/19/2016 N2N/CCD Import Alanine 60 12-78 finding Aminotransferase (Alt/SGPT) Albumin 3.9 3.4-5.0 Albumin/Globulin Ratio 1.0 Alkaline Phosphatase 87 45-117 Anion Gap 9 8-16 BUN/Creatinine Ratio 21.6 Basophils # (Auto) 0.04 0.0-0.1 Basophils (%) (Auto) 0.7 0.0-1.1 Blood Urea Nitrogen 13 7-18 Calcium Level 9.1 8.5-10.1 Carbon Dioxide Level 25 21-32 Chloride Level 104 98-107 Creatinine 0.6 0.6-1.3 Eosinophils # (Auto) 0.11 0.0-0.5 Eosinophils (%) (Auto) 1.9 0.0-6.6 Globulin 3.9 1.9-4.3 Glucose Screen 121 High 74-106 Hematocrit 41.5 36.0-46.1 Hemoglobin 13.7 11.6-15.8 Hemoglobin A1c 7.3 High 4.2-6.3 LDL Cholesterol, Calculated 84 < 100 Lymphocytes (%) (Auto) 33.5 17.0-46.1 Mean Corpuscular Hemoglobin 28.7 25.9-32.7 Mean Corpuscular Hemoglobin Concent 33.0 30.8-34.3 Mean Corpuscular Volume 86.8 80.9-99.0 Mean Platelet Volume 11.1 8.9-12.4 Monocytes # (Auto) 0.30 0.3-0.9 Monocytes (%) (Auto) 5.2 4.3-13.2 Neutrophils (%) (Auto) 58.7 40.4-72.8 Platelet Count 222 155-360 Potassium Level 4.4 3.5-5.1 RDW Coefficient of Variation 13.6 11.7-14.4 Red Blood Count 4.78 3.90-5.40 Red Cell Distribution Width 41.9 3-47 Sodium Level 138 136-145 Total Bilirubin 0.4 0.2-1.0 Total Protein 7.8 6.4-8.2 White Blood Count 5.8 3.1-10.7 CBC W/Automated Diff 03/19/2016 [facility] White Blood 5.8 K/uL 3.1-10.[address] [place] [address] [phone] Red Blood Count 4.78 M/uL 3.90-5.40 Hemoglobin 13.7 gm/dL 11.6-15.8 Hematocrit 41.5 % 36.0-46.1 Mean Cell Volume 86.8 fl 80.9-99.0 Mean Corpuscular HGB 28.7 pg 25.9-32.7 Mean Corpuscular HGB Conc 33.0 g/dL 30.8-34.3 Platelet Count 222 K/uL 155-360 Red Cell Distri Width SD 41.9 fl 3-47 Red Cell Distri Width %CV 13.6 % 11.7-14.4 Mean Platelet Volume 11.1 fL 8.9-12.4 Neut% 58.7 % 40.4-72.8 Lymph % 33.5 % 17.0-46.1 [place] % 5.2 % 4.3-13.2 Eo% 1.9 % 0.0-6.6 Bas% 0.7 % 0.0-1.1 Neut# 3.42 K/uL 1.8-7.0 Lymph # 1.95 K/uL 1.8-7.0 [place] # 0.30 K/uL 0.3-0.9 Eos # 0.11 K/uL 0.0-0.5 Baso # 0.04 K/uL 0.0-0.1 Liver Function Tests 03/19/2016 [facility] Total Protein 7.8 g/dL 6.4-8.2 [address] [place] [address] [phone] Albumin 3.9 g/dL 3.4-5.0 Globulin 3.9 g/dL 1.9-4.3 Alb/Glob 1.0 ratio Bilirubin,Total 0.4 mg/dL 0.2-1.0 Bilirubin,Direct < 0.1 mg/dL 0.0-0.2 Bilirubin,Indirect 0.3 mg/dL 0.0-0.9 Sgot/Ast 33 U/L 15-37 SGPT/Alt 60 U/L 12-78 Alkaline Phosphatase 87 U/L 45-117 LDL Cholesterol Profile 03/19/2016 [facility] Cholesterol 168 mg/dL <200 61 [address] [place] [address] [phone] Triglycerides 175 mg/dL High <150 62 HDL Cholesterol 49 mg/dL >40 63 LDL-Cholesterol 84 mg/dL < 100 64 Renal Function Panel 03/19/2016 [facility] Glucose 121 mg/dL High 74-[address] [place], [place] [address] [phone] BUN 13 mg/dL 7-18 Creatinine 0.6 mg/dL 0.6-1.3 Glom Filtration Rate, Estimate >60 mL/min >60 If >60 mL/min >60 65 BUN/Creat 21.6 ratio Sodium 138 mmol/L 136-145 Potassium 4.4 mmol/L 3.5-5.1 Chloride 104 mmol/L 98-107 Carbon Dioxide 25 mmol/L 21-32 Anion Gap 9 mEq/L 8-16 Calcium 9.1 mg/dL 8.5-10.1 Phosphorous 4.4 mg/dL High 2.5-4.0 Albumin 3.9 g/dL 3.4-5.0 Glycohemoglobin 03/19/2016 [facility] Glycohemoglobin 7.3 % High 4.2-6.3 [address] (A1c) [place], [place] [address] [phone] eAG 163 mg/dL Lymphocytes # (Auto) 03/19/2016 N2N/CCD Import Lymphocytes # (Auto) 1.95 1.8-7.0 Neutrophils # (Auto) 03/19/2016 N2N/CCD Import Neutrophils # (Auto) 3.42 1.8-7.0 Phosphorus Level 03/19/2016 N2N/CCD Import Phosphorus Level 4.4 High 2.5- 4.0 Triglycerides Level 03/19/2016 N2N/CCD Import Triglycerides Level 175 High <150 Glycohemoglobin A1c 07/11/2015 [facility] Glycohemoglobin 6.6 % High 4.2-6.[address] (A1c) [place], [place] [address] [phone] eAG 143 mg/dL Glycohemoglobin 03/21/2015 [facility] Glycohemoglobin 6.7 % High 4.2-6.3 [address] (A1c) [place], [place] [id number] [phone] eAG 146 mg/dL Glycohemoglobin 12/06/2014 [facility] Glycohemoglobin 6.6 % High 4.2-6.3 [address] (A1c) [place] [address] [phone] eAG 143 mg/dL CBC 03/03/2014 N2N/CCD Import Hematocrit 35.3 % Low 36.0-46.1 Hemoglobin 12.2 gm/dL 11.6-15.8 Mean Cell Volume 87.6 fl 80.9-99.0 Mean Corpuscular HGB 30.3 pg 25.9-32.7 Mean Corpuscular HGB Conc 34.6 g/dL High 30.8-34.3 Mean Platelet Volume 11.2 fL 8.9-12.4 Platelet Count 247 K/uL 155-360 Red Blood Count 4.03 M/uL 3.90-5.40 Red Cell Distri Width %CV 13.4 % 11.7-14.4 White Blood Count 9.6 K/uL 3.1-10.7 Laboratory test 03/02/2014 N2N/CCD Import Uterus W/Wo See Note 70 finding FT/Ovary-Fibroid Laboratory test 03/02/2014 N2N/CCD Import Urine HCG Negative Negative 71 finding (Qualitative) Laboratory test 09/01/2013 N2N/CCD Import Hemoglobin A1c 6.0 % Less than 72 finding 6.0 Comp Metabolic 09/01/2013 N2N/CCD Import Albumin 3.9 g/dL 3.6-5.4 Panel Albumin/Globulin Ratio 1.6 1-3 Alkaline Phosphatase 70 U/L 30-110 Alt 43 U/L 14-54 Anion Gap 6.0 mmol/L 2-11 Ast 35 U/L 12-42 BUN/Creatinine Ratio 13.3 8-20 Blood Urea Nitrogen 8 mg/dL 6-24 Calcium 9.0 mg/dL 8.1-9.9 Chloride 103 mmol/L 101-111 Co2 Carbon Dioxide 26.0 mmol/L 22-32 Creatinine 0.60 mg/dL 0.50-1.40 Egfr 137.8 >60 73 Egfr Non- 107.2 >60 Globulin 2.4 g/dL 2-4 Glucose 108 mg/dL High 70-100 Potassium 4.1 mmol/L 3.5-5.0 Sodium 135 mmol/L 133-145 Total Bilirubin 0.4 mg/dL 0.4-1.5 Total Protein 6.3 g/dL 6.2-8.1 Lipid Profile 09/01/2013 N2N/CCD Import Cholesterol 206 mg/dL High Less than (Trig/Chol/HDL) 200 Cholesterol/HDL Ratio 4.7 Average High 1-4.44 HDL Cholesterol 44 mg/dL 40-60 74 LDL Cholesterol 134.6 High Less Than 100 75 Triglycerides 137 mg/dL 40-200 Laboratory test 12/21/2012 N2N/CCD Import Hemoglobin A1c 5.9 % Less than 6.0 76 finding Vitamin D 1,25-Dihydroxy 63 pg/mL 18-78 77 Comp Metabolic Panel 12/21/2012 N2N/CCD Import Albumin 3.8 g/dL 3.6-5.4 Albumin/Globulin Ratio 1.5 1-3 Alkaline Phosphatase 67 U/L 30-110 Alt 24 U/L 14-54 Anion Gap 8.0 mmol/L 2-11 Ast 18 U/L 12-42 BUN/Creatinine Ratio 18.0 8-20 Blood Urea Nitrogen 9 mg/dL 6-24 Calcium 9.4 mg/dL 8.1-9.9 Chloride 103 mmol/L 101-111 Co2 Carbon Dioxide 27.0 mmol/L 22-32 Creatinine 0.50 mg/dL 0.50-1.40 Egfr 170.8 >60 78 Egfr Non- 132.8 >60 Globulin 2.5 g/dL 2-4 Glucose 139 mg/dL High 70-100 Potassium 4.2 mmol/L 3.5-5.0 Sodium 138 mmol/L 133-145 Total Bilirubin 0.2 mg/dL Low 0.4-1.5 Total Protein 6.3 g/dL 6.2-8.1 Lipid Profile 12/21/2012 N2N/[employer] [facility] Cholesterol 230 mg/dL High Less than (Trig/Chol/HDL) 200 Cholesterol/HDL Ratio 4.5 Average High 1-4.44 HDL Cholesterol 51 mg/dL 40-60 79 LDL Cholesterol 136.6 mg/dL High Less Than 100 80 Triglycerides 212 mg/dL High 40-200 Laboratory test 12/08/2012 N2N/[facility] [employer] [facility] Urine HCG Negative Negative 81 finding (Qualitative) Urinalysis With 12/03/2012 N2N/[employer] [facility] Urine Bacteria Moderate High Microscopic None Seen Urine Bilirubin - Dipstick Negative Negative Urine Blood Large High Negative Urine Clarity Clear Clear Urine Color Straw Yellow Urine Epithelial Cells Moderate None Seen /lpf 82 Urine Glucose - Dipstick Negative mg/dL Negative Urine Ketone Negative mg/dL Negative Urine Leuk Esterase Trace High Negative Urine Nitrite - Dipstick Negative Negative Urine PH 7.0 6.5-7.5 Urine Protein - Dipstick Negative mg/dL Negative Urine RBC 20-30 rbc/hpf High 0-7 Urine Specific [place] 1.015 1.010-1.030 Urine Urobilinogen - Dipstick 0.2 E.U./dL 0.2-1.0 Urine WBC 2-5 wbc/hpf 0-7 Type And Screen 12/03/2012 N2N/CCD Import Antibody Screen Negative Negative Patient Blood Type A Pos CBC 12/03/2012 N2N/CCD Import Hematocrit 39.4 % 36.0-46.1 Hemoglobin 13.4 gm/dL 11.6-15.8 Mean Cell Volume 88.7 fl 80.9-99.0 Mean Corpuscular HGB 30.2 pg 25.9-32.7 Mean Corpuscular HGB Conc 34.0 g/dL 30.8-34.3 Mean Platelet Volume 11.1 fL 8.9-12.4 Platelet Count 250 K/uL 155-360 Red Blood Count 4.44 M/uL 3.90-5.40 Red Cell Distri Width %CV 13.3 % 11.7-14.4 White Blood Count 8.1 K/uL 3.1-10.7 Basic Metabolic Panel 12/03/2012 N2N/CCD Import Anion Gap 9 mEq/L 8-16 BUN 12 mg/dL 5-23 BUN/Creat 20.0 ratio Calcium 8.9 mg/dL 8.5-10.1 Carbon Dioxide 29 mEq/L 18-29 Chloride 105 mmol/L 98-107 Creatinine 0.6 mg/dL 0.5-1.4 Glom Filtration Rate, Estimate >60 mL/min >60 Glucose 74 mg/dL Low 76-115 If >60 mL/min >60 83 Potassium 3.7 mmol/L 3.5-5.1 Sodium 139 mmol/L 136-145 Laboratory test 12/03/2012 N2N/CCD Import Culture If Indicated See Note 84 finding Comment Urine Culture See Note 85 Urine Screen See Note 86 Comp Metabolic Panel 09/21/2012 N2N/CCD Import Albumin 4.0 g/dL 3.6-5.4 Albumin/Globulin Ratio 1.7 1-3 Alkaline Phosphatase 64 U/L 30-110 Alt 21 U/L 14-54 Anion Gap 5.0 mmol/L 2-11 Ast 18 U/L 12-42 BUN/Creatinine Ratio 18.0 8-20 Blood Urea Nitrogen 9 mg/dL 6-24 Calcium 9.1 mg/dL 8.1-9.9 Chloride 103 mmol/L 101-111 Co2 Carbon Dioxide 26.0 mmol/L 22-32 Creatinine 0.50 mg/dL 0.50-1.40 Egfr 170.8 >60 87 Egfr Non- 132.8 >60 Globulin 2.3 g/dL 2-4 Glucose 80 mg/dL 70-100 Potassium 4.0 mmol/L 3.5-5.0 Sodium 134 mmol/L 133-145 Total Bilirubin 0.4 mg/dL 0.4-1.5 Total Protein 6.3 g/dL 6.2-8.1 CBC Auto Diff 09/21/2012 N2N/CCD Import Abs Basophils 0.1 10^3/uL 0-0.2 Abs Eosinophils 0.2 10^3/uL 0-0.6 Abs Lymphocytes 2.8 10^3/uL 1.0-4.8 Abs Monocytes 0.5 10^3/uL 0-0.8 Abs Neutrophils 4.5 10^3/uL 1.5-7.7 Abs Nucleated RBC 0 10^3/uL Basophil % 0.7 % 0-2 Eosinophil % 1.9 % 0-6 Granulocyte % 56.3 % 38-83 Hematocrit 38 % 35-47 Hemoglobin 13.0 g/dL 12.0-16.0 Lymphocyte % 34.8 % 25-47 Mean Corpuscular HGB Conc 35 g/dL 31-36 Mean Corpuscular Hemoglobin 31 pg 27-31 Mean Corpuscular Volume 89 fL 80-97 Mean Platelet Volume 9 um3 7.4-10.4 Monocyte % 6.3 % 1-9 Nucleated Red Blood Cells % 0 Platelet Count 228 10^3/uL 150-450 Red Blood Count 4.24 10^6/uL 4.0-5.4 Red Cell Distribution Width 14 % 10.5-15 White Blood Count 7.9 10^3/uL 4.8-10.8 Laboratory test 09/21/2012 N2N/CCD Import Hemoglobin A1c 6.1 % High Less than 88 finding 6.0 TSH (Thyroid Stimulating Horm) 1.48 miu/mL 0.34-5.60 Lipid Profile 09/21/2012 [employer] Import Cholesterol 223 mg/dL High Less than (Trig/Chol/HDL) 200 Cholesterol/HDL Ratio 4.4 Average 1-4.44 HDL Cholesterol 51 mg/dL 40-60 89 LDL Cholesterol 124.2 mg/dL High Less Than 100 90 Triglycerides 239 mg/dL High 40-200 Vitamin D, 25 09/21/2012 [employer] Import 25-Hydroxy Vitamin D 10 ng/mL 91 Hydroxy Total 25-Hydroxy Vitamin D2 <4.0 ng/mL 25-Hydroxy Vitamin D3 10 ng/mL Urinalysis With 05/17/2012 [employer] Urine Bacteria Very Few None Microscopic Seen Urine Bilirubin - Dipstick Negative Negative Urine Blood Large High Negative Urine Clarity SL Cloudy Clear Urine Color Yellow Yellow Urine Epithelial Cells Very Few None Seen Urine Glucose - Dipstick Negative mg/dL Negative Urine Ketone Negative mg/dL Negative Urine Leuk Esterase Negative Negative Urine Nitrite - Dipstick Negative Negative Urine PH 5.5 Low 6.5-7.5 Urine Protein - Dipstick Negative mg/dL Negative Urine RBC 80-100 rbc/hpf High 0-7 Urine Specific [place] 1.025 1.010-1.030 Urine Urobilinogen - Dipstick 0.2 E.U./dL 0.2-1.0 Urine WBC 2-5 wbc/hpf 0-7 Comprehensive Metabolic Panel 05/17/2012 [employer] Alb/Glob 0.9 ratio Albumin 3.8 g/dL 3.5-5.0 Alkaline Phosphatase 70 U/L 50-136 Anion Gap 15 mEq/L 8-16 BUN 13 mg/dL 5-23 BUN/Creat 18.5 ratio Bilirubin,Total 0.4 mg/dL 0.2-1.2 Calcium 9.0 mg/dL 8.5-10.1 Carbon Dioxide 23 mEq/L 18-29 Chloride 104 mmol/L 98-107 Creatinine 0.7 mg/dL 0.5-1.4 Globulin 4.1 g/dL 1.9-4.3 Glom Filtration Rate, Estimate >60 mL/min >60 Glucose 99 mg/dL 76-115 If >60 mL/min >60 92 Potassium 3.6 mmol/L 3.5-5.1 SGPT/Alt 26 U/L Low 30-65 Sgot/Ast 13 U/L Low 16-40 Sodium 138 mmol/L 136-145 Total Protein 7.9 g/dL 6.3-8.0 Laboratory test finding 05/17/2012 N2N/CCD Import Bas% 0.5 % 0.0-1.1 Baso # 0.05 K/uL 0.0-0.1 Eo% 0.6 % 0.0-6.6 Eos # 0.06 K/uL 0.0-0.5 HCG Serum, Qualitative Negative Hematocrit 39.9 % 36.0-46.1 Hemoglobin 13.8 gm/dL 11.6-15.8 Lipase 96 U/L 28-380 Lymph # 2.58 K/uL 0.8-3.4 Lymph % 26.1 % 17.0-46.1 Mean Cell Volume 88.1 fl 80.9-99.0 Mean Corpuscular HGB 30.5 pg 25.9-32.7 Mean Corpuscular HGB Conc 34.6 g/dL High 30.8-34.3 Mean Platelet Volume 10.6 fL 8.9-12.4 [place] # 0.50 K/uL 0.3-0.9 [place] % 5.1 % 4.3-13.2 Neut# 6.70 K/uL 1.0-7.0 Neut% 67.7 % 40.4-72.8 Platelet Count 292 K/uL 155-360 Red Blood Count 4.53 M/uL 3.90-5.40 Red Cell Distri Width %CV 13.2 % 11.7-14.4 Red Cell Distri Width SD 41.5 fl 3-47 Urine Screen See Note 93 White Blood Count 9.9 K/uL 3.1-10.7 GC / Chlamydia 11/11/2011 N2N/CCD Import Chlamydia Negative GC Negative 94 Laboratory test 11/11/2011 N2N/CCD Import Cytology Pap See Note 95 finding Lipid Profile 05/07/2011 N2N/CCD Import Cholesterol 167 mg/dL Less Than 96 (Trig/Chol/HDL) 200 Cholesterol/HDL Ratio 3.41 AVERAGE 1-4.44 High Density Lipoprotein 49 mg/dL 40-60 97 Low Density Lipoprotein 87 mg/dL Less Than 100 98 Triglyceride 157 mg/dL 40-200 Comp Metabolic Panel 05/07/2011 N2N/CCD Import Albumin 4.0 GM/DL 3.6- 5.4 Albumin/Globulin Ratio 1.4 1-3 Alkaline Phosphatase 65 U/L 30-110 Alt (SGPT) 16 U/L 14-54 Anion Gap 8.0 mmol/L 2-11 99 Ast (Sgot) 18 U/L 12-42 BUN 9 mg/dL 6-24 BUN/Creatinine Ratio 15.0 8-20 Bilirubin Total 0.4 mg/dL 0.4-1.5 100 Calcium 9.3 mg/dL 8.1-9.9 Chloride 106 mmol/L 101-111 Co2 (Carbon Dioxide) 24.0 mmol/L 22-32 Creatinine 0.6 mg/dL 0.50-1.40 Globulin 2.8 GM/DL 2-4 Glucose 160 mg/dL High 70-100 One Over Creatinine 1.66 Potassium 4.1 mmol/L 3.5-5.0 Sodium 138 mmol/L 135-145 Total Protein 6.8 GM/DL 6.2-8.1 eGFR 139.0 > 60 101 eGFR Non- 108.1 > 60 CBC Auto Diff 05/07/2011 N2N/CCD Import Abs Basophils 0 0-0.2 Abs Eosinophils 0 0-0.6 Abs Lymphs 1.9 1.0-4.8 Abs Mononuclear 0.4 0-0.8 Absolute Neutrophil Count 4.8 1.5-7.7 Basophil % 0.5 % 0-2 Eosinophil % 0.7 % 0-6 Gran % 67.2 % 38-83 Hematocrit 39 % 35-47 Hemoglobin 13.6 g/dL 12.0-16.0 Lymph % 26.6 % 25-47 Mean Corpuscular HGB Cone 35 g/dL 32-36 Mean Corpuscular Hemoglob 31 pg 27-31 Mean Corpuscular Volume 89 um3 79-97 Mean Platelet Volume 9.4 um3 7.4-10.4 Mononuclear % 5.0 % 1-9 Platelet Count 228 CUMM 150-450 Red Cell Count 4.33 CUMM 4.2-5.4 Redcell Distribution WDTH 14 % 10.5-15 White Blood Count 7.1 CUMM 4.8-10.8 Laboratory test 05/07/2011 N2N/CCD Import Hemoglobin A1c 5.6 % Less Than 6.0 102 finding TSH 1.02 MIU/ML 0.34-5.60 1 E11.65,E78.5 2 Reference Guidelines*: Desirable: ........... < 200 mg/dL Borderline High: ..... 200-239 mg/dL High: ................ >=240 mg/dL * The National Cholesterol Education Program (NCEP) 3 Reference Guidelines*: Normal: ............. < 150 mg/dL Borderline High: .... 150-199 mg/dL High: ............... 200-499 mg/dL Very High: .......... > 500 mg/dL * Source: National Cholesterol Education Program (NCEP) 4 Reference Guidelines*: Low HDL: ..... < 40 mg/dL Normal: ..... 40-60 mg/dL Desirable: ... > 60 mg/dL *The National Cholesterol Education Program(NCEP) 5 Reference Guidelines*: Optimal:........... <100 mg/dL Near Optimal....... 100-129 mg/dL Borderline High.... 130-159 mg/dL High............... 160-189 mg/dL Very High.......... >=190 mg/dL * Source: National Cholesterol Education Program (NCEP) 6 Note: Persistent reduction for 3 months or more in an eGFR <60 mL/min/1.73 m2 defines CKD. Patients with eGFR values >/=60 mL/min/1.73 m2 may also have CKD if evidence of persistent proteinuria is present. The original MDRD equation for estimated GFR is not valid for patients less than 18 years of age. Additional information may be found at www.kdoqi.org. 7 Elevated levels of HbA1c suggest the need for more aggressive treatment of glycemia. The [place] [employer] recommends that a primary goal of therapy should be a HbA1c of <7% and that physicians should re-evaluate the treatment regimen in patients with HbA1c values consistently >8%. 8 E78.5 E11.65 9 Reference Guidelines*: Desirable: ........... < 200 mg/dL Borderline High: ..... 200-239 mg/dL High: ................ >=240 mg/dL * The National Cholesterol Education Program (NCEP) 10 Reference Guidelines*: Normal: ............. < 150 mg/dL Borderline High: .... 150-199 mg/dL High: ............... 200-499 mg/dL Very High: .......... > 500 mg/dL * Source: National Cholesterol Education Program (NCEP) 11 Reference Guidelines*: Low HDL: ..... < 40 mg/dL Normal: ..... 40-60 mg/dL Desirable: ... > 60 mg/dL *The National Cholesterol Education Program(NCEP) 12 Reference Guidelines*: Optimal:........... <100 mg/dL Near Optimal....... 100-129 mg/dL Borderline High.... 130-159 mg/dL High............... 160-189 mg/dL Very High.......... >=190 mg/dL * Source: National Cholesterol Education Program (NCEP) 13 Note: Persistent reduction for 3 months or more in an eGFR <60 mL/min/1.73 m2 defines CKD. Patients with eGFR values >/=60 mL/min/1.73 m2 may also have CKD if evidence of persistent proteinuria is present. The original MDRD equation for estimated GFR is not valid for patients less than 18 years of age. Additional information may be found at www.kdoqi.org. 14 Elevated levels of HbA1c suggest the need for more aggressive treatment of glycemia. The [place] [employer] recommends that a primary goal of therapy should be a HbA1c of <7% and that physicians should re-evaluate the treatment regimen in patients with HbA1c values consistently >8%. 15 Because ethnic data is not always readily available, this report includes an eGFR for both -Americans and non- Americans. The National Kidney Disease Education Program (NKDEP) does not endorse the use of the MDRD equation for patients that are not between the ages of 18 and 70, are , have extremes of body size, muscle mass, or nutritional status, or are non- or non-. According to the National Kidney Foundation, irrespective of diagnosis, the stage of the disease is based on the level of kidney function: Stage Description GFR(mL/min/1.73 m(2)) 1 Kidney damage with normal or decreased GFR 90 2 Kidney damage with mild decrease in GFR 60-89 3 Moderate decrease in GFR 30-59 4 Severe decrease in GFR 15-29 5 Kidney failure <15 (or dialysis) 16 E11.65 17 Elevated levels of HbA1c suggest the need for more aggressive treatment of glycemia. The [place] [employer] recommends that a primary goal of therapy should be a HbA1c of <7% and that physicians should re-evaluate the treatment regimen in patients with HbA1c values consistently >8%. 18 Note: Persistent reduction for 3 months or more in an eGFR <60 mL/min/1.73 m2 defines CKD. Patients with eGFR values >/=60 mL/min/1.73 m2 may also have CKD if evidence of persistent proteinuria is present. The original MDRD equation for estimated GFR is not valid for patients less than 18 years of age. Additional information may be found at www.kdoqi.org. 19 E11.65 R94.5 20 Elevated levels of HbA1c suggest the need for more aggressive treatment of glycemia. The [place] [employer] recommends that a primary goal of therapy should be a HbA1c of <7% and that physicians should re-evaluate the treatment regimen in patients with HbA1c values consistently >8%. 21 Note: Persistent reduction for 3 months or more in an eGFR <60 mL/min/1.73 m2 defines CKD. Patients with eGFR values >/=60 mL/min/1.73 m2 may also have CKD if evidence of persistent proteinuria is present. The original MDRD equation for estimated GFR is not valid for patients less than 18 years of age. Additional information may be found at www.kdoqi.org. 22 Performed at: RN - [facility] [address], [place], [place] [id number] Secondary Set Up Man: Anny Carrillo MD, Phone: [phone] 23 Specimen slightly Hemolyzed, interpret with caution 24 Reference Guidelines*: Desirable: ........... < 200 mg/dL Borderline High: ..... 200-239 mg/dL High: ................ >=240 mg/dL * The National Cholesterol Education Program (NCEP) 25 Reference Guidelines*: Normal: ............. < 150 mg/dL Borderline High: .... 150-199 mg/dL High: ............... 200-499 mg/dL Very High: .......... > 500 mg/dL * Source: National Cholesterol Education Program (NCEP) 26 Reference Guidelines*: Low HDL: ..... < 40 mg/dL Normal: ..... 40-60 mg/dL Desirable: ... > 60 mg/dL *The National Cholesterol Education Program(NCEP) 27 Reference Guidelines*: Optimal:........... <100 mg/dL Near Optimal....... 100-129 mg/dL Borderline High.... 130-159 mg/dL High............... 160-189 mg/dL Very High.......... >=190 mg/dL * Source: National Cholesterol Education Program (NCEP) 28 E11.65 R94.5 29 Note: Persistent reduction for 3 months or more in an eGFR <60 mL/min/1.73 m2 defines CKD. Patients with eGFR values >/=60 mL/min/1.73 m2 may also have CKD if evidence of persistent proteinuria is present. The original MDRD equation for estimated GFR is not valid for patients less than 18 years of age. Additional information may be found at www.kdoqi.org. 30 Elevated levels of HbA1c suggest the need for more aggressive treatment of glycemia. The [place] [employer] recommends that a primary goal of therapy should be a HbA1c of <7% and that physicians should re-evaluate the treatment regimen in patients with HbA1c values consistently >8%. 31 POSSIBLE UROGENITAL CONTAMINATION. 32 URINE, CLEAN CATCH 33 R74.8 E11.65 E78.5 34 Reference Guidelines*: Desirable: ........... < 200 mg/dL Borderline High: ..... 200-239 mg/dL High: ................ >=240 mg/dL * The National Cholesterol Education Program (NCEP) 35 Reference Guidelines*: Normal: ............. < 150 mg/dL Borderline High: .... 150-199 mg/dL High: ............... 200-499 mg/dL Very High: .......... > 500 mg/dL * Source: National Cholesterol Education Program (NCEP) 36 Reference Guidelines*: Low HDL: ..... < 40 mg/dL Normal: ..... 40-60 mg/dL Desirable: ... > 60 mg/dL *The National Cholesterol Education Program(NCEP) 37 Reference Guidelines*: Optimal:........... <100 mg/dL Near Optimal....... 100-129 mg/dL Borderline High.... 130-159 mg/dL High............... 160-189 mg/dL Very High.......... >=190 mg/dL * Source: National Cholesterol Education Program (NCEP) 38 Note: Persistent reduction for 3 months or more in an eGFR <60 mL/min/1.73 m2 defines CKD. Patients with eGFR values >/=60 mL/min/1.73 m2 may also have CKD if evidence of persistent proteinuria is present. The original MDRD equation for estimated GFR is not valid for patients less than 18 years of age. Additional information may be found at www.kdoqi.org. 39 Elevated levels of HbA1c suggest the need for more aggressive treatment of glycemia. The [place] [employer] recommends that a primary goal of therapy should be a HbA1c of <7% and that physicians should re-evaluate the treatment regimen in patients with HbA1c values consistently >8%. 40 R74.8 E11.65 41 INFCE Result Units: s/co ratio Negative: < 0.8 Indeterminate: 0.8 - 0.9 Positive: > 0.9 The CDC recommends that a positive HCV antibody result be followed up with a HCV Nucleic Acid Amplification test ([id number]). Performed at: RN - [facility] [address] [id number] Secondary Set Up Man: Anny Carrillo MD, Phone: [phone] 42 Elevated levels of HbA1c suggest the need for more aggressive treatment of glycemia. The [place] [employer] recommends that a primary goal of therapy should be a HbA1c of <7% and that physicians should re-evaluate the treatment regimen in patients with HbA1c values consistently >8%. 43 E11.65 44 Method: Molly AimTab Ketone Tablets 45 Note: Persistent reduction for 3 months or more in an eGFR <60 mL/min/1.73 m2 defines CKD. Patients with eGFR values >/=60 mL/min/1.73 m2 may also have CKD if evidence of persistent proteinuria is present. The original MDRD equation for estimated GFR is not valid for patients less than 18 years of age. Additional information may be found at www.kdoqi.org. 46 Elevated levels of HbA1c suggest the need for more aggressive treatment of glycemia. The [place] [employer] recommends that a primary goal of therapy should be a HbA1c of <7% and that physicians should re-evaluate the treatment regimen in patients with HbA1c values consistently >8%. 47 Reference Guidelines*: Desirable: ........... < 200 mg/dL Borderline High: ..... 200-239 mg/dL High: ................ >=240 mg/dL * The National Cholesterol Education Program (NCEP) 48 Reference Guidelines*: Normal: ............. < 150 mg/dL Borderline High: .... 150-199 mg/dL High: ............... 200-499 mg/dL Very High: .......... > 500 mg/dL * Source: National Cholesterol Education Program (NCEP) 49 Reference Guidelines*: Low HDL: ..... < 40 mg/dL Normal: ..... 40-60 mg/dL Desirable: ... > 60 mg/dL *The National Cholesterol Education Program(NCEP) 50 Reference Guidelines*: Optimal:........... <100 mg/dL Near Optimal....... 100-129 mg/dL Borderline High.... 130-159 mg/dL High............... 160-189 mg/dL Very High.......... >=190 mg/dL * Source: National Cholesterol Education Program (NCEP) 51 E11.65 D48.9 52 Note: Persistent reduction for 3 months or more in an eGFR <60 mL/min/1.73 m2 defines CKD. Patients with eGFR values >/=60 mL/min/1.73 m2 may also have CKD if evidence of persistent proteinuria is present. The original MDRD equation for estimated GFR is not valid for patients less than 18 years of age. Additional information may be found at www.kdoqi.org. 53 Elevated levels of HbA1c suggest the need for more aggressive treatment of glycemia. The [place] [employer] recommends that a primary goal of therapy should be a HbA1c of <7% and that physicians should re-evaluate the treatment regimen in patients with HbA1c values consistently >8%. 54 E11.65 55 This Staphylococcal species does not demonstrate inducible clindamycin resistance in vitro. 56 BOIL OR CYST ON UNDERWEAR LINE 57 FEW GRAM POSITIVE COCCI 58 RARE WHITE BLOOD CELLS 59 RARE EPITHELIAL CELLS 60 METHICILLIN RESISTANT S.AUREUS 61 Reference Guidelines*: Desirable: ........... < 200 mg/dL Borderline High: ..... 200-239 mg/dL High: ................ >=240 mg/dL * The National Cholesterol Education Program (NCEP) 62 Reference Guidelines*: Normal: ............. < 150 mg/dL Borderline High: .... 150-199 mg/dL High: ............... 200-499 mg/dL Very High: .......... > 500 mg/dL * Source: National Cholesterol Education Program (NCEP) 63 Reference Guidelines*: Low HDL: ..... < 40 mg/dL Normal: ..... 40-60 mg/dL Desirable: ... > 60 mg/dL *The National Cholesterol Education Program(NCEP) 64 Reference Guidelines*: Optimal:........... <100 mg/dL Near Optimal....... 100-129 mg/dL Borderline High.... 130-159 mg/dL High............... 160-189 mg/dL Very High.......... >=190 mg/dL * Source: National Cholesterol Education Program (NCEP) 65 Note: Persistent reduction for 3 months or more in an eGFR <60 mL/min/1.73 m2 defines CKD. Patients with eGFR values >/=60 mL/min/1.73 m2 may also have CKD if evidence of persistent proteinuria is present. The original MDRD equation for estimated GFR is not valid for patients less than 18 years of age. Additional information may be found at www.kdoqi.org. 66 Elevated levels of HbA1c suggest the need for more aggressive treatment of glycemia. The [place] [employer] recommends that a primary goal of therapy should be a HbA1c of <7% and that physicians should re-evaluate the treatment regimen in patients with HbA1c values consistently >8%. 67 Elevated levels of HbA1c suggest the need for more aggressive treatment of glycemia. The [place] [employer] recommends that a primary goal of therapy should be a HbA1c of <7% and that physicians should re-evaluate the treatment regimen in patients with HbA1c values consistently >8%. 68 Elevated levels of HbA1c suggest the need for more aggressive treatment of glycemia. The [place] [employer] recommends that a primary goal of therapy should be a HbA1c of <7% and that physicians should re-evaluate the treatment regimen in patients with HbA1c values consistently >8%. 69 Elevated levels of HbA1c suggest the need for more aggressive treatment of glycemia. The [place] [employer] recommends that a primary goal of therapy should be a HbA1c of <7% and that physicians should re-evaluate the treatment regimen in patients with HbA1c values consistently >8%. 70 This is a corrected report. Any previous versions are stored internally and are available if necessary. OPERATION/PROCEDURE Right salpingectomy, left oophorectomy DIAGNOSIS: PART 1: "RIGHT FALLOPIAN TUBE": FALLOPIAN TUBE WITHOUT SIGNIFICANT PATHOLOGICAL ABNORMALITIES. PART 2: "LEFT OVARY": BENIGN HEMORRHAGIC CYST. PART 3: "UTERUS AND CERVIX": CERVIX: NABOTHIAN CYSTS. ENDOMETRIUM: PROLIFERATIVE PHASE. MYOMETRIUM: LEIOMYOMA AND ADENOMYOSIS. JERE/MARY KATE/silvia GROSS Part 1. Received in formalin labeled, "RIGHT FALLOPIAN TUBE" is a 5.9 cm. segment of powell-purple, rubbery fallopian tube with a diameter up to 0.6 cm. The serosal surface of the fallopian tube is smooth. Upon further sectioning it is grossly unremarkable. Cosmetics Demonstrator sections are submitted in block #1. The remaining tissue is submitted in toto in block 1b. Part 2. Received in formalin labeled, "LEFT OVARY" is an 11 gram, 3.9 x 3.0 x 1.7 cm. ovary. The surface is smooth and the resection surface appears to have hemorrhagic changes. Upon further sectioning the ovarian stroma is otherwise unremarkable with the exception of hemorrhagic cysts measuring up to 0.9 cm. in diameter. Cosmetics Demonstrator sections are submitted in two blocks. Part 3. Received in formalin labeled, "UTERUS AND CERVIX" is a uterus with attached GROSS (Continued) cervix without adnexa weighing 165 grams. The uterus measures 9.5 cm. from fundus to cervix, 5.5 cm. from cornu to cornu and 4.9 cm. in A/P diameter and is oriented by peritoneal reflections. The cervix measures 3.2 cm. in length and 3.2 cm. in diameter. The os is fish-mouthed and measures 1.0 cm. in width. The serosal surface of the uterus is smooth and the superior portion of the uterus has a bulging appearance. The cervical mucosa is grossly unremarkable. The uterus is opened along its lateral borders. Upon opening the lower uterine segment and endocervical canal is grossly unremarkable. The uterine cavity measures 7.8 cm. in depth. The endometrium is smooth and measures 0.1 cm. in thickness. Upon further sectioning the myometrium measures up to 2.2 cm. in thickness and contains multiple nodules measuring up to 2.1 cm. in greatest dimension. On cut surface these nodules have a trabecular appearance with focal hemorrhagic changes. Cosmetics Demonstrator sections are submitted as follows: A1=anterior cervix, A2=posterior cervix, B1-B3=anterior endomyometrium, B4-B6=posterior endomyometrium including the nodules. Additional sections are submitted: B7=anterior, including lower uterine segment, B8=posterior, white nodule and lower uterine segment, B9-D31=rregtkuzr, with thicked endometrium. JW/josrf MICROSCOPIC Part 1: Sections reveal fallopian tube without significant pathological abnormality. Part 2: Sections reveal ovarian with stromal collections of hemosiderin laden macrophages, consistent with old hemorrhagic changes. No evidence of endometriosis is seen. Part 3: The cervix shows cystically dilated endocervical glands and bland squamous mucosa. The endometrium has tubular glands in a spindled stroma. The myometrium has nodular whorled bundles of fusiform smooth muscle cells with oval nuclei. Mitotic figures, giant cells and anaplasia are absent. There are deeply situated endometrial glands , and specialized stroma, findings consistent with adenomyosis. PRE OPERATIVE DIAGNOSIS Menometrorrhagia, endometrial polyp, ovarian cyst REVIEW CODE CODE: I ---- Signed Electronically signed DRAKE BABCOCK MD 03/21/14 1135 ---- 71 FIRST MORNING SPECIMENS GENERALLY CONTAIN THE HIGHEST CONCENTRATION OF HCG AND ARE RECOMMENDED FOR EARLY DETECTION OF . 72 Therapeutic target for the treatment of diabetes Mellitus patients is <7% HBA1C, and in selective patients <6.0%.Please refer to [place] [employer] Diabetic care guidelines for further information. 73 Because ethnic data is not always readily available, this report includes an eGFR for both -Americans and non- Americans. The National Kidney Disease Education Program (NKDEP) does not endorse the use of the MDRD equation for patients that are not between the ages of 18 and 70, are , have extremes of body size, muscle mass, or nutritional status, or are non- or non-. According to the National Kidney Foundation, irrespective of diagnosis, the stage of the disease is based on the level of kidney function: Stage Description GFR(mL/min/1.73 m(2)) 1 Kidney damage with normal or decreased GFR 90 2 Kidney damage with mild decrease in GFR 60- 89 3 Moderate decrease in GFR 30-59 4 Severe decrease in GFR 15-29 5 Kidney failure <15 (or dialysis) 74 HDL Interpretation: Undesirable: High Risk: Less than 40 mg/dL Desirable: Low Risk: Greater than 60 mg/dL 75 LDL Interpretation: Low Risk Optimal Level: LDL Less than 100 mg/dL Near or Above Optimal: LDL 100-129 mg/dL Borderline High Risk: LDL 130-159 mg/dL High Risk : LDL 160-189 mg/dL Very High Risk: LDL Greater than 189 mg/dL 76 Therapeutic target for the treatment of diabetes Mellitus patients is <7% HBA1C, and in selective patients <6.0%.Please refer to [place] [employer] Diabetic care guidelines for further information. 77 Test Performed by: [address] [address] Digital Cartographer: Ubaldo Chi III, M.D. 78 Because ethnic data is not always readily available, this report includes an eGFR for both -Americans and non- Americans. The National Kidney Disease Education Program (NKDEP) does not endorse the use of the MDRD equation for patients that are not between the ages of 18 and 70, are , have extremes of body size, muscle mass, or nutritional status, or are non- or non-. According to the National Kidney Foundation, irrespective of diagnosis, the stage of the disease is based on the level of kidney function: Stage Description GFR(mL/min/1.73 m(2)) 1 Kidney damage with normal or decreased GFR 90 2 Kidney damage with mild decrease in GFR 60- 89 3 Moderate decrease in GFR 30-59 4 Severe decrease in GFR 15-29 5 Kidney failure <15 (or dialysis) 79 HDL Interpretation: Undesirable: High Risk: Less than 40 MG/DL Desirable: Low Risk: Greater than 60 MG/DL 80 LDL Interpretation: Low Risk Optimal Level: LDL Less than 100 MG/DL Near or Above Optimal: LDL 100-129 MG/DL Borderline High Risk: LDL 130-159 MG/DL High Risk : LDL 160-189 MG/DL Very High Risk: LDL Greater than 189 MG/DL 81 FIRST MORNING SPECIMENS GENERALLY CONTAIN THE HIGHEST CONCENTRATION OF HCG AND ARE RECOMMENDED FOR EARLY DETECTION OF . 82 POSSIBLE UROGENITAL CONTAMINATION. 83 Note: Persistent reduction for 3 months or more in an eGFR <60 mL/min/1.73 m2 defines CKD. Patients with eGFR values >/=60 mL/min/1.73 m2 may also have CKD if evidence of persistent proteinuria is present. The original MDRD equation for estimated GFR is not valid for patients less than 18 years of age. Additional information may be found at www.kdoqi.org. 84 CULTURE TO FOLLOW 85 COLONY COUNT ! 10,000 - 20,000 CFU/ml Organism 1 ! URETHRAL NOÉ 86 12/03/12 LAB.[email or web address] Deleted by [facility] 87 Because ethnic data is not always readily available, this report includes an eGFR for both -Americans and non- Americans. The National Kidney Disease Education Program (NKDEP) does not endorse the use of the MDRD equation for patients that are not between the ages of 18 and 70, are , have extremes of body size, muscle mass, or nutritional status, or are non- or non-. According to the National Kidney Foundation, irrespective of diagnosis, the stage of the disease is based on the level of kidney function: Stage Description GFR(mL/min/1.73 m(2)) 1 Kidney damage with normal or decreased GFR 90 2 Kidney damage with mild decrease in GFR 60- 89 3 Moderate decrease in GFR 30-59 4 Severe decrease in GFR 15-29 5 Kidney failure <15 (or dialysis) 88 Therapeutic target for the treatment of diabetes Mellitus patients is <7% HBA1C, and in selective patients <6.0%.Please refer to [place] [employer] Diabetic care guidelines for further information. 89 HDL Interpretation: Undesirable: High Risk: Less than 40 MG/DL Desirable: Low Risk: Greater than 60 MG/DL 90 LDL Interpretation: Low Risk Optimal Level: LDL Less than 100 MG/DL Near or Above Optimal: LDL 100-129 MG/DL Borderline High Risk: LDL 130-159 MG/DL High Risk : LDL 160-189 MG/DL Very High Risk: LDL Greater than 189 MG/DL 91 Interpretation: 10-24 (mild to moderate deficiency) -- REFERENCE VALUE -- 25-HYDROXY D TOTAL (D2+D3) Optimum levels in the normal population are 25-80 Test Performed by: [facility] [address] [address] Digital Cartographer: Ubaldo Chi III, M.D. 92 Note: Persistent reduction for 3 months or more in an eGFR <60 mL/min/1.73 m2 defines CKD. Patients with eGFR values >/=60 mL/min/1.73 m2 may also have CKD if evidence of persistent proteinuria is present. The original MDRD equation for estimated GFR is not valid for patients less than 18 years of age. Additional information may be found at www.kdoqi.org. 93 05/17/12 [email or web address] Deleted by [facility] 94 Special Testing Laboratory [address], [address] [place] [address] GC / CHLAMYDIA REPORT Name: Vivek Baptiste : 1965 (Age: 46) Sex: F Location: [facility] Soc. Sec. #: [phone] Date Collected: 11/11/2011 Billing #: [id number] Date Received: 11/12/2011 Physician(s): DEYANIRA DIAZ NP Source of Specimen: ThinPrep, APTIMA Results: Neisseria gonorrhoeae NEGATIVE Chlamydia trachomatis NEGATIVE Comment: This analysis was performed using second generation nucleic acid amplification testing (NAAT). Reported: 11/13/2011 Electronic Signature [facility] [place] [facility] ICD-9 Codes: 616.10 95 Cytology Laboratory [address], [address] [place] [address] CYTOLOGY REPORT Name: Vivek Baptiste : 1965 (Age: 46) Sex: F Location: [facility] Date Collected: 11/11/2011 Billing #: [id number] Date Received: 11/12/2011 Physician(s): DEYANIRA DIAZ NP Source of Specimen: ENDOCERVICAL/ECTOCERVICAL THIN PREP Clinical Information: Date of Last Menstrual Period: 11/07/11 Menstrual History: Regular Specimen Adequacy: SATISFACTORY FOR EVALUATION. ADEQUATE ENDOCERVICAL/TRANSFORMATION ZONE. General Categorization: NEGATIVE FOR INTRAEPITHELIAL LESION OR MALIGNANCY. Descriptive Evaluation: REACTIVE CELLULAR CHANGES ASSOCIATED WITH INFLAMMATION. Electronic Signature Jasen Sheth MD Reported: 11/14/2011 Also seen by: Diana De León, [place] ([facility]) Cytology Outreach [facility] ICD-9 Code(s) V72.31 A: 616.9 96 CHOLESTEROL INTERPRETATION: Desirable: Less than 200 MG/DL Borderline-High Risk: 200-239 MG/DL High-Risk: 240 MG/DL and over 97 HDL INTERPRETATION: Undesirable: High Risk: Less than 40 MG/DL Desirable: Low Risk: Greater than 60 MG/DL 98 LDL INTERPRETATION: Low Risk Optimal Level: LDL Less than 100 MG/DL Near or Above Optimal: LDL 100-129 MG/DL Borderline High Risk: LDL 130-159 MG/DL High Risk : LDL 160-189 MG/DL Very High Risk: LDL Greater than 189 MG/DL 99 Anion gap measurement may be of limited value in the presence of any alkalosis, especially in a combined acid base disorder. . 100 A metabolite of Naproxen, O-desmethylnaproxen, has been shown to interfere with the Jendrassik-Peyton method for measuring total bilirubin. Samples from patients who have taken Naproxen have shown spurious elevation in total bilirubin levels. 101 Because ethnic data is not always readily available, this report includes an eGFR for both -Americans and non- Americans. The National Kidney Disease Education Program (NKDEP) does not endorse the use of the MDRD equation for patients that are not between the ages of 18 and 70, are , have extremes of body size, muscle mass, or nutritional status, or are non- or non-. According to the National Kidney Foundation, irrespective of diagnosis, the stage of the disease is based on the level of kidney function: Stage Description GFR(mL/min/1.73 m(2)) 1 Kidney damage with normal or decreased GFR 90 2 Kidney damage with mild decrease in GFR 60- 89 3 Moderate decrease in GFR 30-59 4 Severe decrease in GFR 15-29 5 Kidney failure <15 (or dialysis) 102 THERAPEUTIC TARGET FOR THE TREATMENT OF DIABETES MELLITUS PATIENTS IS <7% HBA1C, AND IN SELECTIVE PATIENTS <6.0%. PLEASE REFER TO [place] [employer] DIABETIC CARE GUIDELINES FOR FURTHER INFORMATION. Procedures Date Code Description Status 10/26/2018 86702 Eye Exam Est Patient Comprehensive Completed 11/11/2017 25 Disability Form Completed 10/31/2017 [id number] Mammogram Completed 10/23/2017 47139 Eye Exam New Patient Comprehensive Completed 06/16/2017 33398 Measurement Post Voiding Residual Urine By Completed Ultrasound,Non-Imaging 07/30/2016 [id number] Mammogram Completed 08/07/2015 [id number] Diabetic Foot Exam Completed 03/02/2014 68566 Anesthesia, Lower Abdomen Surgery Not Otherwise Spec Completed 12/08/2012 42575 Anesthesia, Hysteroscopy, Hystersalpingography Completed 12/03/2012 48542 EKG Interpretation And Report Only Completed 03/21/2011 76904 Anesthesia, Intraoral Surgery Not Otherwise Spec Completed 03/15/2011 57112 EKG Interpretation And Report Only Completed 10/04/2010 73231 Anesthesia, Lower Abdomen Surgery Not Otherwise Spec Completed 10/01/2010 14901 EKG Interpretation And Report Only Completed 10/11/2009 80396 EKG Interpretation And Report Only Completed 06/13/2009 [id number] Colonoscopy Completed Encounters Type Date Location Provider Dx Diagnosis Office Visit 01/12/2019 9:00a Urology Adrienne Alcocer M.D. N20.0 Calculus of kidney R31.21 Asymptomatic microscopic hematuria Office Visit 09/11/2018 9:30a Primary Care Jose, E11.65 Type 2 diabetes Office [facility] mellitus with hyperglycemia E78.5 Hyperlipidemia, unspecified Office Visit 06/12/2018 10:45a Primary Care Jose, E78.5 Hyperlipidemia, Office [facility] unspecified E11.65 Type 2 diabetes mellitus with hyperglycemia I10 Essential (primary) hypertension Z23 Encounter for immunization Z68.43 Body mass index (BMI) 50-59.9, adult Office Visit 03/02/2018 11:15a Primary Care Jose M47.896 Other spondylosis, Office [facility] lumbar region E88.2 Lipomatosis, not elsewhere classified E11.65 Type 2 diabetes mellitus with hyperglycemia Z68.43 Body mass index (BMI) 50-59.9 , adult Office Visit 01/13/2018 11:30a Primary Care [facility] M47.896 Other spondylosis, Office Eliz, [facility] lumbar region E11.65 Type 2 diabetes mellitus with hyperglycemia Z68.43 Body mass index (BMI) 50-59.9 , adult Office Visit 01/13/2018 9:30a Urology Leodan R31.21 Asymptomatic Heidi Deleon microscopic hematuria Office Visit 12/01/2017 11:30a [facility] [place], M47.896 Other spondylosis, Office Eliz, RPAC lumbar region K80.20 Calculus of gallbladder w/o cholecystitis w/o obstruction Z68.43 Body mass index (BMI) 50-59.9 , adult Office Visit 10/20/2017 10:15a Primary Care [place], E11.65 Type 2 diabetes Office Eliz, RPAC mellitus with hyperglycemia R94.5 Abnormal results of liver function studies M47.896 Other spondylosis, lumbar region Z12.31 Encntr screen mammogram for malignant neoplasm of breast M54.2 Cervicalgia Z68.43 Body mass index (BMI) 50-59.9 , adult Office Visit 09/08/2017 10:45a Primary Care [place], M47.896 Other spondylosis, Office Eliz, RPAC lumbar region E11.65 Type 2 diabetes mellitus with hyperglycemia R94.5 Abnormal results of liver function studies Office Visit 07/28/2017 10:00a Primary Care [place], E11.65 Type 2 diabetes Office Eliz, RPAC mellitus with hyperglycemia R94.5 Abnormal results of liver function studies Office Visit 06/30/2017 11:00a Primary Care [place], M62.830 Muscle spasm Office Eliz, RPAC of back M47.896 Other spondylosis, lumbar region Z23 Encounter for immunization Office Visit 06/16/2017 1:15p Urology Adrienne Alcocer M.D. N20.0 Calculus of kidney R31.21 Asymptomatic microscopic hematuria Office Visit 06/03/2017 11:15a [facility] [place], M62.830 Muscle spasm Office Eliz, RPAC of back M76.32 Iliotibial band syndrome, left leg J34.0 Abscess, furuncle and carbuncle of nose N20.0 Calculus of kidney R74.8 Abnormal levels of other serum enzymes Office Visit 05/20/2017 10:15a Primary Care [place], M62.830 Muscle spasm Office Eliz, RPAC of back M76.32 Iliotibial band syndrome, left leg Office Visit 05/06/2017 10:45a Primary Care [place], E11.65 Type 2 diabetes Office [facility] [place] mellitus with hyperglycemia R74.8 Abnormal levels of other serum enzymes E78.5 Hyperlipidemia, unspecified I10 Essential (primary) hypertension M62.830 Muscle spasm of back Office Visit 04/25/2017 2:00p Primary Care Eliz Garcia, R25.2 Cramp and Office RPAC spasm M76.32 Iliotibial band syndrome, left leg Office Visit 02/04/2017 10:45a Primary Care [facility], E11.65 Type 2 diabetes Office [facility] [place] mellitus with hyperglycemia R74.8 Abnormal levels of other serum enzymes Z79.84 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 Office Visit 11/26/2016 9:30a Primary Care [place], E11.65 Type 2 diabetes Office [facility] [place] mellitus with hyperglycemia Z79.84 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 E78.5 Hyperlipidemia, unspecified I10 Essential (primary) hypertension Office Visit 07/23/2016 10:15a Primary Care [place], E11.65 Type 2 diabetes Office [facility] [place] mellitus with hyperglycemia E78.5 Hyperlipidemia, unspecified I10 Essential (primary) hypertension D48.9 Neoplasm of uncertain behavior, unspecified Z23 Encounter for immunization Office Visit 03/19/2016 9:00a Primary Care [place], E11.9 Type 2 diabetes Office [facility] [place] mellitus without complications E78.5 Hyperlipidemia, unspecified I10 Essential (primary) hypertension S39.013A Strain of muscle, fascia and tendon of pelvis, init encntr Office Visit 07/18/2015 [facility], E11.628 Type 2 diabetes 9:00a PRISCA Nielsen mellitus with RD other skin complications I10 Essential (primary) hypertension E78.5 Hyperlipidemia, unspecified F17.210 Nicotine dependence, cigarettes, uncomplicated Z71.6 Tobacco abuse counseling Z23 Encounter for immunization Office Visit 03/21/2015 [facility], 250.00 Diabetes 9:30a PRISCA Nielsen Mellitus W/O RD Compl Type II Or Unspec Controlled 401.1 Hypertension Benign 278.01 Obesity Morbid 305.1 Tobacco Use Disorder Office Visit 12/06/2014 [facility] 401.1 Hypertension 9:00a Brandi Guerra TEST TUBE MAKER Benign RD 278.01 Obesity Morbid 305.1 Tobacco Use Disorder Plan of Treatment Future Appointment(s):10/28/2019 11:00 am - Serafin Akers MD at [facility]
--- OUTSIDE RECORDS SUMMARY | 2019-01-12 10:06 | XMS REPORT | Continuity of Care Document ---
:1965 External Reference #:[id number] Author Name Vivek Prieto Care Team Providers Name Role Eliz Schulz RPA Primary Care Physician Unavailable Payers Date Identification Numbers Payment Provider Subscriber Policy Number: [id number] [facility] Arlene Padron PayID: [id number] [address] [address] [place] [address] Advance Directives Description No Information Available Problems Active Problems Provider Date Essential hypertension Eliz Garcia, PA Onset: 11/03/2018 Hyperlipidemia Eliz Garcia, PA Onset: 11/03/2018 Carotid artery stenosis Eliz Garcia, PA Onset: 11/03/2018 Diabetes mellitus Eliz Garcia, PA Onset: 11/03/2018 Morbid obesity Eliz Garcia, PA Onset: 11/03/2018 Steatosis of liver Eliz Garcia, PA Onset: 11/03/2018 Abnormal liver function Eliz Garcia, PA Onset: 11/03/2018 Note: proportional to elevated A1c Internal hemorrhoids Eliz Garcia, PA Onset: 11/03/2018 Diverticular disease Eliz Garcia, PA Onset: 11/03/2018 Kidney stone Eliz Garcia, PA Onset: 11/03/2018 Benign neoplasm of adrenal gland Eliz Garcia, PA Onset: 11/03/2018 Note: left, noted 2012 Combined form of senile cataract Elizcarlos alberto Garcia, PA Onset: 11/03/2018 Dry eyes Eliz Garcia, PA Onset: 11/03/2018 Chronic low back pain Eliz Garcia, PA Onset: 11/03/2018 Note: disability Microscopic hematuria Eliz Garcia, PA Onset: 11/03/2018 Methicillin resistant Staphylococcus aureus Eliz Garcia, PA Onset: 11/03 infection Cholelithiasis without obstruction Eliz Garcia, PA Onset: 11/03/2018 Lipoma of terminal spinal cord Elizcarlos alberto Garcia, PA Onset: 11/03/2018 History of malignant neoplasm of tongue Eliz EDWAR Garcia Onset: 2018 Degenerative joint disease involving multiple Eliz EDWAR Garcia Onset: joints Note: hips, dorsal/lumbar spine, feet Family History Date Family Member(s) Observation Comments Father Colon Cancer Father Hypertension Father Cataracts Mother Diabetes Mother Hypertension Mother Cataracts First Brother Diabetes amputations First Brother Coronary Artery Disease (CAD) sudden @ 41 yrs old Social History Type Date Description Comments Sex Unknown 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[employer] ETOH Use Rarely consumes alcohol Tobacco Use Start: Unknown End: Patient is a former Quit Unknown smoker Recreational Drug Use Never Used Drugs Smoking Status Reviewed: 12/15/18 Patient is a former Quit smoker Exercise Type/Frequency Exercises regularly HEP from PT for back Allergies, Adverse Reactions, Alerts Active Allergies Reaction Severity Comments Date Augmentin full body rash 11/03/2018 Medications Active Medications SIG Qnty Indications Ordering Date Provider Trulicity inject 1.5mg 2ml Gregory 12/08/2018 subcutaneously once Segundo, 1.5mg/0.5ML per week Solution Pen-Inject Rosuvastatin 1 by mouth every day 30tabs Gregory 11/03/2018 Calcium Segundo, 20mg MD Tablets Pioglitazone HCL take 1 tablet by 90tabs 11/03/2018 mouth once daily Segundo, 30mg Tablets Metformin HCL take 1 tablet by 180tabs 11/03/2018 mouth twice a day Segundo, 1000mg Tablets Glipizide ER 1 tab by mouth tid 11/03/2018 2.5mg Segundo, Tablets ER 24HR Benazepril HCL 1 by mouth every day 11/03/2018 40mg Segundo, Tablets Ibuprofen one four times a day 11/03/2018 600mg with food Segundo, Tablets MD Linda Elam 3 times daily or as 100units 11/03/2018 Lancets needed dx e11.65 MD Linda Segundo Test for every day to 300units 11/03/2018 three times a day use Segundo, Strips History Medications Ciprofloxacin HCL 1 tab by mouth 20tabs L02.31 Gregory Segundo 2018 - 750mg twice a day 11/30/2018 Tablets Trulicity inject 0.75mg 6ml Gregory Segundo, 11/03/2018 - 0.75mg/0.5ML once a week 12/08/2018 Solution Pen-Inject Ciprofloxacin HCL 1 tab by mouth 20tabs L02.31 Gregory Segundo, 2018 - 750mg twice a day 11/14/2018 Tablets Diflucan 1 tab by mouth 1tabs L02.31 Gregory Segundo, 11/03/2018 - 150mg Tablets X 1 11/14/2018 Immunizations CPT Code Status Date Vaccine Lot # [id number] Given 06/12/2018 Influenza Virus Vaccine, Quadrivalent, Split, Preservative Free 01907 Given 06/30/2017 Influenza Virus Vaccine, Quadrivalent, Split, Preservative Free 29803 Given 07/23/2016 Influenza Virus Vaccine, Quadrivalent, Split, Preservative Free 80427 Given 07/18/2015 Influenza Virus Vaccine, Quadrivalent, Split, Preservative Free Vital Signs Date Vital Result Comment 12/15/2018 1:05pm Height 61.5 inches 5'1.50" Weight 299.50 lb Heart Rate 88 /min BP Systolic Sitting 128 mmHg BP Diastolic Sitting 68 mmHg O2 % BldC Oximetry 97 % BMI (Body Mass Index) 55.7 kg/m2 11/19/2018 2:49pm Weight 303.25 lb Heart Rate 79 /min BP Systolic 146 mmHg BP Diastolic 80 mmHg O2 % BldC Oximetry 98 % 11/03/2018 2:55pm Height 61.5 inches 5'1.50" Weight 302.00 lb Heart Rate 92 /min BP Systolic Sitting 134 mmHg BP Diastolic Sitting 86 mmHg O2 % BldC Oximetry 95 % BMI (Body Mass Index) 56.1 kg/m2 Results Description No Information Available Procedures Date Code Description Status 10/16/2018 [id number] Diabetic Retinal Eye Exam Completed 10/31/2017 [id number] Mammogram Completed 12/21/2015 [id number] Colonoscopy Completed Encounters Type Date Location Provider Dx Diagnosis Office Visit 11/19/2018 [facility] Liliana Maier.Kat Cutaneous abscess 2:30p PA of buttock Office Visit 11/03/2018 [facility] Liliana Maier.Kat Cutaneous abscess 3:00p PA of buttock Plan of Treatment Future Appointment(s):03/16/2019 10:30 am - EDWAR Maier at [facility]12/15/2018 - Eliz Garcia, PAK80.20 Calculus of gallbladder without cholecystitis without dyvbthY01.65 Type 2 diabetes mellitus with hyperglycemiaNew Labs:Hemoglobin A1c (Glyco HGB), Ordered: 12/15/18Basic Metabolic Panel, Ordered: 12/15/18Z12.31 Encounter for screening mammogram for malignant neoplasm ofAllComments:Reviewed medication list:
[2019-01-12 10:15] VITALS: BP 105/60
--- NOTE | 2019-01-12 10:32 | UC ---
UC General HPI - HPI Summary HPI Summary: per triage, Pt has been coughing, sneezing, scratchy troat, nasal congestion, and eyes are watery. Symptoms present for 5 days. no sob, CP, fever or asthma/copd. cough becomes severe. - History of Current Complaint Chief Complaint: UCGeneralIllness Stated Complaint: SINUS CONCERN Time Seen by Provider: 01/12/19 10:26 Hx Obtained From: Patient Onset/Duration: Gradual Onset Timing: Constant Pain Intensity: 0 Associated Signs & Symptoms: Negative: Fever, Headache - Allergy/Home Medications Allergies/Adverse Reactions: Allergies Allergy/AdvReac Type Severity Reaction Status Date / Time amoxicillin [From Augmentin] Allergy Rash Verified 01/12/19 10:16 clavulanic acid Allergy Rash Verified 01/12/19 10:16 [From Augmentin] Home Medications: Home Medications Dulaglutide [Trulicity] 1.5 mg SQ WEEKLY 01/12/19 [History Confirmed 01/12/19] Rosuvastatin Calcium 20 mg PO DAILY 01/12/19 [History Confirmed 01/12/19] PMH/Surg Hx/FS Hx/Imm Hx Endocrine History: Diabetes Cardiovascular History: Hypertension - Surgical History Surgical History: Yes Surgery Procedure, Year, and Place: HYSTERECTOMY. FALLOPIAN TUBE REMOVED. TONGUE - CANCER REMOVED. D & C. TONSILECTOMY - Family History Known Family History: Positive: Non-Contributory - Social History Lives: With Family Alcohol Use: None Substance Use Type: None Smoking Status (MU): Never Smoked Tobacco - Immunization History Vaccination Up to Date: Yes Review of Systems All Other Systems Reviewed And Are Negative: Yes Constitutional: Negative: Fever, Chills Eyes: Negative: Drainage ENT: Positive: Sore Throat - scratchy, Nasal Discharge, Sinus Congestion Respiratory: Positive: Cough. Negative: Shortness Of Breath Cardiovascular: Negative: Palpitations, Chest Pain Neurological: Negative: Headache Physical Exam Triage Information Reviewed: Yes Appearance: Well-Appearing Vital Signs: Initial Vital Signs Temp 97.4 F 01/12/19 10:08 Pulse 83 01/12/19 10:08 Resp 16 01/12/19 10:08 BP 105/60 01/12/19 10:08 Pulse Ox 99 01/12/19 10:08 Vital Signs Reviewed: Yes Eyes: Positive: Conjunctiva Inflamed - mildly red and watery. Negative: Discharge ENT: Positive: Pharynx normal, Nasal congestion, Nasal drainage - clear, TMs normal. Negative: Sinus tenderness Neck: Positive: Supple, Nontender, No Lymphadenopathy Respiratory: Positive: Lungs clear, Normal breath sounds, No respiratory distress, Other: - Frequent cough. Negative: Crackles, Rhonchi, Wheezing Cardiovascular: Positive: RRR, No Murmur Abdomen Description: Positive: Nontender Musculoskeletal: Positive: ROM Intact Neurological: Positive: Alert Psychological: Positive: Age Appropriate Behavior Skin Exam: Normal Re-Evaluation - Re-Evaluation First Eval Re-Evaluation Time: 10:55 Change: Improved - belén cough and increased aeration post neb. pt feel better as well. Course/Dx - Differential Dx - Multi-Symptom Differential Diagnoses: Other - s/s's suggestive of allergies. no fever or purulent drainage to suggest bacterial infection. oct allergy meidcation advised. - Diagnoses Provider Diagnosis: Environmental allergies, Bronchospasm, acute Discharge - Sign-Out/Discharge Documenting (check all that apply): Patient Departure All imaging exams completed and their final reports reviewed: No Studies - Discharge Plan Condition: Stable Disposition: HOME Prescriptions: Albuterol HFA INHALER* [Ventolin HFA Inhaler*] 2 puff INH Q6H #1 mdi Patient Education Materials: Allergies (ED), Bronchospasm (ED) Referrals: Eliz Garcia PA [Primary Care Provider] - 7 Days - Billing Disposition and Condition Condition: STABLE Disposition: Home
[2019-01-12] MEDS ORDERED: Albuterol 2.5 MG/3 ML NEB.SOL* (0.083%) INH ONE (10:37)
== END 2019-01-12 11:02 | disposition home or self-care (01) ==
LOC: UCCORT 09:57
DX: J98.01 Acute bronchospasm (principal); Z91.09 Other allergy status, other than to drugs and biological substances; E11.9 Type 2 diabetes mellitus without complications; I10 Essential (primary) hypertension; Z79.84 Long term (current) use of oral hypoglycemic drugs; Z79.899 Other long term (current) drug therapy; Z88.1 Allergy status to other antibiotic agents; Z88.8 Allergy status to other drugs, medicaments and biological substances
CPT/HCPCS: 99212; G0463

== ENCOUNTER 2019-01-17 11:29 | Emergency (ER) | payer BC ==
[2019-01-17 13:21] VITALS: BP 114/97
--- NOTE | 2019-01-17 13:24 | UC ---
Respiratory Complaint HPI - HPI Summary HPI Summary: 54 y/o female presents to the urgent care c/o nasal congestion w/ green nasal discharge for the past week and symptoms has progressively worsen. Pt states she was seen here Friday, diagnosed with URI and given an albuterol inhaler to alleviate symptoms. Now she has developed a dry cough which is triggered by her PND. She hasn't been able to sleep well due to coughing spells. Pt dneis fever, dizziness, SON, chest pain, abdominal pain, N/V/D. - History of Current Complaint Chief Complaint: UCRespiratory Stated Complaint: RECHECK COUGH Time Seen by Provider: 01/17/19 13:22 Hx Obtained From: Patient Onset/Duration: Gradual Onset, Lasting Weeks - 1 week, Still Present, Worse Since - 3 days Timing: Intermittent Episodes Severity Initially: Mild Severity Currently: Moderate Pain Intensity: 3 - sinus pain Pain Scale Used: 0-10 Numeric Character: Cough: Nonproductive Aggravating Factors: Recumbent Position Alleviating Factors: OTC Meds Associated Signs And Symptoms: Positive: URI, Nasal Congestion, Sinus Discomfort. Negative: Wheezing Related History: Seasonal Allergies - Allergies/Home Medications Allergies/Adverse Reactions: Allergies Allergy/AdvReac Type Severity Reaction Status Date / Time amoxicillin [From Augmentin] Allergy Rash Verified 01/17/19 13:15 clavulanic acid Allergy Rash Verified 01/17/19 13:15 [From Augmentin] PMH/Surg Hx/FS Hx/Imm Hx Previously Healthy: Yes Endocrine History: Diabetes, Dyslipidemia Cardiovascular History: Hypertension - Surgical History Surgical History: Yes Surgery Procedure, Year, and Place: HYSTERECTOMY. FALLOPIAN TUBE REMOVED. TONGUE - CANCER REMOVED. D & C. TONSILECTOMY - Family History Known Family History: Positive: Hypertension, Diabetes - Social History Occupation: Employed Full-time Lives: With Family Alcohol Use: None Substance Use Type: None Smoking Status (MU): Never Smoked Tobacco - Immunization History Vaccination Up to Date: Yes Review of Systems All Other Systems Reviewed And Are Negative: Yes Constitutional: Positive: Negative Skin: Positive: Negative Eyes: Positive: Negative ENT: Positive: Nasal Discharge - green, Sinus Congestion, Sinus Pain/Tenderness , Other - moderate PND Respiratory: Positive: Cough - dry Cardiovascular: Positive: Negative Gastrointestinal: Positive: Negative Genitourinary: Positive: Negative Motor: Positive: Negative Neurovascular: Positive: Negative Musculoskeletal: Positive: Negative Neurological: Positive: Negative Psychological: Positive: Negative Is Patient Immunocompromised?: No Physical Exam - Summary Physical Exam Summary: Vitals: reviewed General: Well developed, well-nourished obese female patient with NAD. Head and face: Normocephalic and atraumatic, Positive tenderness over the frontal and maxillary sinuses.. Eyes: PERRLA, EOMI x 2. Normal conjunctiva. No eye discharge. ENT: Ears and TM with normal limits. Nose: edematous and erythematous nasal mucosa with with yellowish discharge and erythematous mucosa. Pharynx with erythema, no exudate. moderate green nasal discharge Neck: Supple, no JVD, no carotid bruits and no lymphadenopathy. Lungs: clear, no rales, no rhonchi, no wheezes. CVS: RRR, S1 and S2 present no murmurs or gallops appreciated. Abdomen: soft nontender with positive bowel sounds. Extremities: no edema noted. Neuro: WNL. Skin: warm and dry Triage Information Reviewed: Yes Vital Signs: Initial Vital Signs Temp 98.2 F 01/17/19 13:17 Pulse 92 01/17/19 13:17 Resp 17 01/17/19 13:17 BP 114/97 01/17/19 13:17 Pulse Ox 98 01/17/19 13:17 Respiratory Course/Dx - Course Course Of Treatment: 54 y/o female presents to the urgent care c/o nasal congestion w/ green nasal discharge for the past week and symptoms has progressively worsen. Pt states she was seen here Friday01/12/2019 and diagnosed with URI and given an albuterol inhaler to alleviate symptoms. Now she has developed a dry cough which is triggered by her PND. She hasn't been able to sleep well due to coughing spells. Pt denies fever, dizziness, SON, chest pain, abdominal pain, N/ V/D. Pt w/ acute bacterial sinusitis on examination. Pt with 1 weeks of symptoms getting worse. Pt is PCN allergic. Pt Rx Doxycycline PO and flonase nasal spray. Tessalon PO for cough. Discharge instructions explained to Pt. Advised to Return to the clinic or PCP if symptoms do not improve. Pt's BP is elevated today advised to decrease salt in diet, monitor BP and f/u with PCP for further management.D/C instructions explained. Pt understood and agreed with plan of care. - Differential Dx/Diagnosis Differential Diagnosis/HQI/PQRI: Asthma, Bronchitis, Influenza, Lower Resp Infection, Sinusitis Provider Diagnosis: Acute bacterial sinusitis, Cough, Uncontrolled hypertension Discharge - Sign-Out/Discharge Documenting (check all that apply): Patient Departure - D/C home All imaging exams completed and their final reports reviewed: No Studies - Discharge Plan Condition: Stable Disposition: HOME Prescriptions: Benzonatate CAP* [Tessalon 100 MG CAP*] 100 mg PO TID PRN #21 cap PRN Reason: Cough DOXYcycline CAP(*) [DOXYcycline 100MG CAP(*)] 100 mg PO BID #20 cap Fluticasone NASAL SPRAY 50MCG* [Flonase NASAL SPRAY 50MCG*] 2 spray BOTH NARES DAILY #1 btl Patient Education Materials: Sinusitis (ED) Referrals: Eliz Garcia PA [Primary Care Provider] - 3 Days Tor Casanova MD [Medical Doctor] - If Needed Additional Instructions: 1- Please increase fluid intake and rest. take full course of antibiotic to avoid resistance. Take yogurts w/ probiotics or Culturelle to protect your GI system 2-Use Flonase as directed to help drain fluid. Also buy saline drops to clear sinuses 3-Take Tessalon tab PO to alleviates cough. Use the albuterol inhaler if to alleviate bronchospasm 4- Please f/u w/ your PCP or ENT DR Casanova if symptoms do not improve in 3 -4 days for further management and treatment 5- Your BP is elevated today. please decrease salt in your diet, monitor BP and if it continues to be elevated please f/u with your PCP for further management. - Billing Disposition and Condition Condition: STABLE Disposition: Home - Attestation Statements Provider Attestation: Per institutional requirements, I have reviewed the chart, however, I was not consulted specifically or made aware of this patient by the midlevel provider. I did not personally evaluate, interact with , or disposition this patient.
== END 2019-01-17 13:49 | disposition home or self-care (01) ==
LOC: UCCORT 11:29
DX: J01.90 Acute sinusitis, unspecified (principal); B96.89 Other specified bacterial agents as the cause of diseases classified elsewhere; I10 Essential (primary) hypertension; R05 Cough; J30.2 Other seasonal allergic rhinitis; E11.9 Type 2 diabetes mellitus without complications; E78.5 Hyperlipidemia, unspecified; Z88.0 Allergy status to penicillin; Z88.8 Allergy status to other drugs, medicaments and biological substances
CPT/HCPCS: 99212; G0463

== ENCOUNTER 2019-08-13 15:27 | Emergency (ER) | payer BC ==
--- OUTSIDE RECORDS SUMMARY | 2019-08-13 15:32 | XMS REPORT | Continuity of Care Document ---
:1965 External Reference #:[id number] Author Name EDWAR Maier (transmitted by agent of provider Jamee Cobb) Address [address] [place] [address] Care Team Providers Name Role Phone Eliz Garcia RPA - Medical Care Team Information [facility] [phone] Pierce Abdul MD - Vascular Care Team Information [facility] Surgery Problems Active Problems Provider Date Essential hypertension Eliz Garcia PA Onset: 11/03/2018 Hyperlipidemia Eliz Garcia PA Onset: 11/03/2018 Carotid artery stenosis Eliz Garcia, PA Onset: 11/03/2018 Note: extensive plaques Diabetes mellitus Eliz Garcia, PA Onset: 11/03/2018 Note: ~2014 Morbid obesity Eliz Garcia PA Onset: 11/03/2018 Steatosis of liver Eliz Garcia PA Onset: 11/03/2018 Abnormal liver function Eliz Garcia, PA Onset: 11/03/2018 Note: proportional to elevated A1c Internal hemorrhoids Eliz Garcia PA Onset: 11/03/2018 Diverticular disease Eliz Garcia, PA Onset: 11/03/2018 Kidney stone Eliz Garcia, PA Onset: 11/03/2018 Microscopic hematuria Eliz Garcia, PA Onset: 11/03/2018 Benign neoplasm of adrenal gland Eliz Garcia PA Onset: 11/03/2018 Note: left, noted 2013 Combined form of senile cataract Eliz Garcia, PA Onset: 11/03/2018 Dry eyes Eliz Garcia PA Onset: 11/03/2018 Methicillin resistant Staphylococcus aureus Eliz Garcia, PA Onset: 11/03 infection Cholelithiasis without obstruction Eliz Garcia, PA Onset: 11/03/2018 Lipoma of terminal spinal cord Eliz Garcia, PA Onset: 11/03/2018 Note: noted 2017 History of malignant neoplasm of tongue Eliz Garcia, 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 Degenerative joint disease involving multiple Eliz Garcia, PA Onset: joints Note: hips, dorsal/lumbar spine, feet Chronic low back pain Eliz Garcia, PA Onset: 11/03/2018 Note: disability Sciatica Eliz Garcia PA Onset: 12/20/2018 Note: (L) side, since 03/2017 Vitamin D deficiency Eliz Garcia, PA Onset: 04/26/2019 Social History Type Date Description Comments Sex Unknown Tobacco Use Start: Unknown Started at 21 yrs old 1/2 - 1 ppd ETOH Use Rarely consumes alcohol Tobacco Use Start: Unknown End: Patient is a former Quit Unknown smoker Recreational Drug Use Never Used Drugs Smoking Status Reviewed: 07/22/19 Patient is a former Quit smoker Exercise Type/Frequency Exercises regularly just HEP from PT for back Allergies, Adverse Reactions, Alerts Active Allergies Reaction Severity Comments Date Augmentin full body rash 11/03/2018 Medications Active Medications SIG Qnty Indications Ordering Date Provider Vitamin D-3 1 by mouth every day Gregory 07/22/2019 25mcg Segundo, (1000 Ut) Capsules Aspirin Adult Low 1 by mouth every day 100tabs Gregory 07/22/2019 Dose Segundo, 81mg Tablets MD DR Thomas inject 1.5mg 90days Gregory 12/08/2018 subcutaneously once Segundo, 1.5mg/0.5ML per week Solution Pen-Inject Rosuvastatin 1 by mouth every day 90tabs Gregory 11/03/2018 Calcium Segundo, 20mg MD Tablets Pioglitazone HCL take 1 tablet by 90tabs 11/03/2018 mouth once daily Segundo, 30mg Tablets Metformin HCL take 1 tablet by 180tabs Gregory 11/03/2018 mouth twice a day Segundo, 1000mg Tablets Glipizide ER take 1 tablet by 270tabs Gregory 11/03/2018 2.5mg mouth three times a Segundo, Tablets ER 24HR day Benazepril HCL 1 tab by mouth every 90tabs Gregory 11/03/2018 40mg day Segundo, Tablets Ibuprofen one four times a day Gregory 11/03/2018 600mg with food Segundo, Tablets MD Linda Elam 3 times daily or as 100units Gregory 11/03/2018 Lancets needed dx e11.65 MD Linda Segundo Test for every day to 300units Gregory 11/03/2018 three times a day use Segundo, Strips History Medications Hydroxyzine HCL 1 by mouth 3 180tabs L29.9 Gregory Segundo 06/03/2019 - times a day and 07/22/2019 10mg Tablets 3 pills at at bedtime Immunizations CPT Code Status Date Vaccine Lot # [id number] Given 06/12/2019 Influenza Virus Vaccine, Quadrivalent, Split, Preservative Free 26943 Given 06/12/2018 Influenza Virus Vaccine, Quadrivalent, Split, Preservative Free 96484 Given 06/30/2017 Influenza Virus Vaccine, Quadrivalent, Split, Preservative Free 40802 Given 07/23/2016 Influenza Virus Vaccine, Quadrivalent, Split, Preservative Free 75089 Given 07/18/2015 Influenza Virus Vaccine, Quadrivalent, Split, Preservative Free Vital Signs Date Vital Result Comment 07/22/2019 1:09pm Height 61.5 inches 5'1.50" Weight 301.31 lb Heart Rate 88 /min BP Systolic Sitting 128 mmHg BP Diastolic Sitting 74 mmHg O2 % BldC Oximetry 92 % BMI (Body Mass Index) 56.0 kg/m2 06/03/2019 1:44pm Weight 296.00 lb Heart Rate 84 /min BP Systolic 128 mmHg BP Diastolic 76 mmHg Body Temperature 98.1 F O2 % BldC Oximetry 97 % room air Results Test Acquired Date Facility Test Result H/L Range Note Laboratory test 04/23/2019 [facility] Hemoglobin A1c 7.5 % High 4.0-5.[address] (Glyco HGB) [place] [address] [phone] Comp Metabolic 04/23/2019 [facility] Sodium 139 mmol/L Normal 135-[address] [place] [address] [phone] Potassium 4.2 mmol/L Normal 3.5-5.0 Chloride 103 mmol/L Normal 101-111 Co2 Carbon Dioxide 28 mmol/L Normal 22-32 Anion Gap 8 mmol/L Normal 2-11 Glucose 132 mg/dL High 70-100 Blood Urea Nitrogen 8 mg/dL Normal 6-24 Creatinine 0.57 mg/dL Normal 0.51-0.95 BUN/Creatinine Ratio 14.0 Normal 8-20 Calcium 9.4 mg/dL Normal 8.6-10.3 Total Protein 6.9 g/dL Normal 6.4-8.9 Albumin 4.3 g/dL Normal 3.2-5.2 Globulin 2.6 g/dL Normal 2-4 Albumin/Globulin Ratio 1.7 Normal 1-3 Total Bilirubin 0.40 mg/dL Normal 0.2-1.0 Alkaline Phosphatase 65 U/L Normal 34-104 Alt 32 U/L Normal 7-52 Ast 31 U/L Normal 13-39 Egfr Non- 111.0 >60 Egfr 134.2 >60 2 Lipid Profile 04/23/2019 [facility] Triglycerides 151 mg/dL 3 (Trig/Chol/HDL) [address] [place] [address] [phone] Cholesterol 129 mg/dL 4 HDL Cholesterol 47.6 mg/dL 5 LDL Cholesterol 51 mg/dL 6 Laboratory 04/23/2019 [facility] TSH (Thyroid 1.53 Normal 0.34 -5.60 test finding [address] Stim Horm) mcIU/[place] [address] [phone] CBC Auto Diff 04/23/2019 [facility] White Blood 6.5 10^3/uL Normal 3.5-10.[address] [place] [address] [phone] Red Blood Count 4.66 10^6/uL Normal 3.70-4.87 Hemoglobin 13.3 g/dL Normal 12.0-16.0 Hematocrit 39 % Normal 35-47 Mean Corpuscular Volume 84 fL Normal 80-97 Mean Corpuscular Hemoglobin 29 pg Normal 27-31 Mean Corpuscular HGB Conc 34 g/dL Normal 31-36 Red Cell Distribution Width 15 % Normal 10-15 Platelet Count 214 10^3/uL Normal 150-450 Mean Platelet Volume 9.3 fL Normal 7.4-10.4 Abs Neutrophils 4.3 10^3/uL Normal 1.5-7.7 Abs Lymphocytes 1.7 10^3/uL Normal 1.0-4.8 Abs Monocytes 0.3 10^3/uL Normal 0-0.8 Abs Eosinophils 0.1 10^3/uL Normal 0-0.6 Abs Basophils 0.0 10^3/uL Normal 0-0.2 Abs Nucleated RBC 0.0 10^3/uL Granulocyte % 66.6 % Lymphocyte % 26.5 % Monocyte % 4.6 % Eosinophil % 1.7 % Basophil % 0.6 % Nucleated Red Blood Cells % 0.1 Laboratory test 04/23/2019 [facility] Vitamin D Total 12.1 Low 20-[address] 25(Oh) ng/[place] [address] [phone] Urine 04/22/2019 [facility] Ur Microalbumin 20.2 mg/L Microalbumin [address] (mg/L) [place] [address] [phone] Urine Creatinine 116.87 mg/dL Urine Microalbumin/Creatinine 17.2 Normal <31 Urine Culture And 04/22/2019 [facility] Urine Culture SEE RESULT [address] [place] [address] [phone] 1 Therapeutic target for the treatment of diabetes mellitus patients is <7% HBA1C, and in selective patients <6.0%. Please refer to [place] [employer] diabetic care guidelines for further information. 2 Because ethnic data is not always readily [...] 15-29 5 Kidney failure <15 (or dialysis) 3 Desirable: <150 Borderline High: 150-199 High: 200-499 Very High: >500 4 Desirable: <200 Borderline High: 200-239 High: >239 5 Low: <40 Desirable: 40-60 High: >60 6 Desirable: <100 Near Optimal: 100-129 Borderline High: 130-159 High: 160-189 Very High: >189 7 Total 25-Hydroxyvitamin D2 and D3 (25-OH-VitD) <10 ng/mL (severe deficiency) 10-19 ng/mL (mild to moderate deficiency) 20-50 ng/mL (optimum levels) 51-80 ng/mL (increased risk of hypercalciuria) >80 ng/mL (toxicity possible) 8 SEE RESULT BELOW Name: XIOMY MOSQUERA : [address]: Eliz VANN Acct: [id number] Unit: [id number] AGE: 54 Location: [facility] Re04/22/19 SEX: F Status: REG REF SPEC: [id number] I[place]: 04/22/19-[address]: Eliz VANN REQ: [id number] RECD: 04/22/19 STATUS: COMP _ SOURCE: URINE SPDESC: ORDERED: Urine Culture COMMENTS: [id number] Urine Source: Random Procedure Result Reported Site Urine Culture Final 04/23/19- 1624 ML No growth of clinically significant organisms * ML - Main Lab . END OF REPORT DEPARTMENT OF PATHOLOGY, [address] [place] [address] Omkar Howard M.D. Director [facility] # [id number] Procedures Date Code Description Status 12/22/2018 [id number] Mammogram Completed 10/31/2017 [id number] Mammogram Completed 12/21/2015 [id number] Colonoscopy Completed 08/07/2015 [id number] Diabetic Foot Exam Completed Medical Devices Description No Information Available Encounters Type Date Location Provider Dx Diagnosis Office Visit 06/03/2019 [facility] Primary Care Gregory L29.9 Pruritus, 1:45p MD Sanya unspecified I65.21 Occlusion and stenosis of right carotid artery Office Visit 04/22/2019 1:00p [facility] Primary Eliz E11.65 Type 2 diabetes Care EDWAR Garcia mellitus with hyperglycemia E78.2 Mixed hyperlipidemia I10 Essential (primary) hypertension R82.90 Unspecified abnormal findings in urine Z01.818 Encounter for other preprocedural examination K80.20 Calculus of gallbladder w/o cholecystitis w/o obstruction Assessments Date Code Description Provider 07/22/2019 E11.65 Type 2 diabetes mellitus with hyperglycemia EDWAR Maier 07/22/2019 I10 Essential (primary) hypertension EDWAR Maier 07/22/2019 E55.9 Vitamin D deficiency, unspecified EDWAR Maier 06/03/2019 L29.9 Pruritus, unspecified Gregory Segundo MD 06/03/2019 I65.21 Occlusion and stenosis of right carotid Gregory Segundo MD artery 04/22/2019 E11.65 Type 2 diabetes mellitus with hyperglycemia EDWAR Maier 04/22/2019 E78.2 Mixed hyperlipidemia EDWAR Maier 04/22/2019 I10 Essential (primary) hypertension EDWAR Maier 04/22/2019 R82.90 Unspecified abnormal findings in urine EDWAR Maier 04/22/2019 Z01.818 Encounter for other preprocedural EDWAR Maier examination 04/22/2019 K80.20 Calculus of gallbladder without EDWAR Maier cholecystitis without obstruction Plan of Treatment Future Appointment(s):10/20/2019 10:30 am - EDWAR Maier at [facility] Primary Care07/22/2019 - Eliz Garcia PAE11.65 Type 2 diabetes mellitus with hyperglycemiaNew Labs:Hemoglobin A1c, Ordered: 07/22/19Comments:Continue current medication(s): Glipizide ER 2.5mg TID, Metformin 1 gm BID, Pioglitazone 30mg daily, Trulicity 1.5mg weeklyFollow up:3 [id number] Essential ( primary) hypertensionNew Labs:BMP W/Egfr, Ordered: 07/22/19Comments:Continue current medication(s): Benazepril 40mg uztxnV72.9 Vitamin D deficiency, unspecifiedNew Labs:Vitamin D,25 Hydroxy, Ordered: 07/22/19Comments:Current supplementation: D3 1000 I.U. dailyAllNew Medication:Vitamin D-3 25 mcg (1000 Ut) - 1 by mouth every dayAspirin Adult Low Dose 81 mg - 1 by mouth every day Functional Status Functional Condition Comment Date Status Platform attached walker is used to ambulate prn Active Mental Status Description No Information Available Referrals Refer to Dr Reason for Referral Status Appt Date Pierce Abdul MD Asymptomatic carotid stenosis DM, HTN, Sent 08/09/2019 hyperlipidemia Please arrive at the time listed on your referral, this is your check in time. Please be sure to bring your insurance cards & photo ID as well as any copayment associated with the insurance. If you have any questions or concerns, please feel free to contact Kimberly @ [phone]. Thank you. [address] [place] [address] [place] [address] [phone]
[2019-08-13 16:15] VITALS: BP 130/64
[2019-08-13] MEDS ORDERED: Meclizine TAB* 12.5 MG PO ONE (16:49)
--- NOTE | 2019-08-13 16:51 | UC ---
Dizzy HPI HPI Summary: 54-year-old woman comes in with a chief complaint of dizziness. Is been going on for a month. Initially she felt pressure in both of her ears and had a frontal headache. She did have minimal rhinorrhea at that time no more rhinorrhea no more headache. She still hearing some crackling in her ears. No difficulty with vision or speech. No weakness or numbness. When the patient walks as long as she looks forward she does not have any problems with balance. The spinning dizziness is brought on by movement of the head. - History Of Current Complaint Chief Complaint: UCDizziness Stated Complaint: DIZZINESS Time Seen by Provider: 08/13/19 16:33 Pain Intensity: 0 - Allergies/Home Medications Allergies/Adverse Reactions: Allergies Allergy/AdvReac Type Severity Reaction Status Date / Time amoxicillin [From Augmentin] Allergy Rash Verified 08/13/19 16:08 clavulanic acid Allergy Rash Verified 08/13/19 16:08 [From Augmentin] Home Medications: Home Medications Aspirin EC TAB* [Ecotrin EC Low Dose 81 MG*] 81 mg PO DAILY 08/13/19 [History Confirmed 08/13/19] Cholecalciferol (Vitamin D3) [Vitamin D3] 1,000 unit PO DAILY 08/13/19 [History Confirmed 08/13/19] PMH/Surg Hx/FS Hx/Imm Hx Previously Healthy: Yes Endocrine History: Diabetes Cardiovascular History: Hypertension - Surgical History Surgical History: Yes Surgery Procedure, Year, and Place: HYSTERECTOMY. FALLOPIAN TUBE REMOVED. TONGUE - CANCER REMOVED. D & C. TONSILECTOMY. Gallbladder Apr 2019 - Family History Known Family History: Positive: Hypertension, Diabetes, Non-Contributory - Social History Alcohol Use: Rare Substance Use Type: None Smoking Status (MU): Former Smoker - Immunization History Vaccination Up to Date: Yes Review of Systems All Other Systems Reviewed And Are Negative: Yes Constitutional: Positive: Other - SEE HPI Skin: Positive: Negative Eyes: Positive: Negative ENT: Positive: Ear Ache, Nasal Discharge, Sinus Congestion Respiratory: Positive: Negative Cardiovascular: Positive: Negative Gastrointestinal: Positive: Negative Motor: Positive: Negative Neurovascular: Positive: Negative Musculoskeletal: Positive: Negative Neurological: Positive: Headache Psychological: Positive: Negative Is Patient Immunocompromised?: No Physical Exam Triage Information Reviewed: Yes Appearance: Well-Appearing, No Pain Distress, Well-Nourished Vital Signs: Initial Vital Signs Temp 97.4 F 08/13/19 16:11 Pulse 75 08/13/19 16:11 Resp 16 08/13/19 16:11 BP 130/64 08/13/19 16:11 Pulse Ox 100 08/13/19 16:11 Vital Signs Reviewed: Yes Eyes: Positive: Other: - PERRLA EOMI. No photophobia. No nystagmus appreciated on exam. ENT: Positive: Pharyngeal erythema, TM dull - B/L Neck: Positive: Supple Respiratory: Positive: Lungs clear, Normal breath sounds, No respiratory distress Cardiovascular: Positive: RRR Musculoskeletal: Positive: Strength Intact, ROM Intact Neurological: Positive: Alert, Muscle Tone Normal, Other: - No nystagmus appreciated on exam. Normal finger to nose. Normal [id number]. Smile symmetric. 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 Legs have full range of motion full-strength. No sensation deficit. Psychological: Positive: Age Appropriate Behavior Skin Exam: Normal Dizzy Course/Dx - Course Course Of Treatment: Patient's symptoms are most consistent with benign peripheral vertigo. No neurologic deficit found on examination. No dizziness at rest. Normal finger- nose normal [id number]. Recommended taking an [id number] antihistamine. Also prescription for meclizine to be used as needed. Follow- up with primary care doctor. I discussed signs and symptoms of a stroke and I recommended to the patient that if she did have any above symptoms that she should go the emergency department for further evaluation and care. - Differential Dx/Diagnosis Provider Diagnosis: Dizziness, Vertigo Discharge ED - Sign-Out/Discharge Documenting (check all that apply): Patient Departure All imaging exams completed and their final reports reviewed: No Studies - Discharge Plan Condition: Stable Disposition: HOME Prescriptions: Meclizine HCl [Motion Sickness Relief] 25 mg PO Q6HR PRN #20 tablet PRN Reason: Vertigo Patient Education Materials: Vertigo (ED), Dizziness (ED) Referrals: Eliz Garcia PA [Primary Care Provider] - Additional Instructions: FOLLOW UP WITH YOUR PRIMARY CARE DOCTOR. TRY THE [facility]. GO TO THE EMERGENCY DEPARTMENT IF WORSE; DIZZINESS AT REST, WEAKNESS, NUMBNESS, DIFFICULTY WITH VISION OR SPEECH, SIGNS OF A STROKE OR ANY QUESTIONS OR CONCERNS. - Billing Disposition and Condition Condition: STABLE Disposition: Home
== END 2019-08-13 17:02 | disposition home or self-care (01) ==
LOC: UCCORT 15:27
DX: R42 Dizziness and giddiness (principal); E11.9 Type 2 diabetes mellitus without complications; I10 Essential (primary) hypertension; H92.03 Otalgia, bilateral; Z87.891 Personal history of nicotine dependence; Z88.0 Allergy status to penicillin
CPT/HCPCS: 99212; A9270-GY; G0463

== ENCOUNTER 2022-12-17 07:30 | Inpatient (IN) ==
[2023-01-21] MEDS ORDERED: NS 0.9% 1000 ml BAG 1,000 ML IV SCH (06:00)
[2023-01-21] MEDS ORDERED: Buffered Lidocaine 1% SYRIN 1 ml INTRADERM ONE (06:00)
[2023-01-21] MEDS ORDERED: fentaNYL 100 mcg/2 ml 50 MCG/ML VIAL IV PRN (07:51)
[2023-01-21] MEDS ORDERED: HYDROmorphone 1 MG/1 ML SYRINGE IV PRN (07:51)
[2023-01-21] MEDS ORDERED: Prochlorperazine 5 mg/ml 2 ml VIAL (10 mg) IV PRN (07:51)
[2023-01-21] MEDS ORDERED: Naloxone 0.4 mg VIAL 0.4 mg/ml 1 ml VIAL IV PRN (07:51)
[2023-01-21] MEDS ORDERED: Propofol 10 MG/ML 20 ML BTL ONE (08:35)
[2023-01-21] MEDS ORDERED: Rocuronium 50 mg VIAL 10 mg/ml 5 ml VIAL (50 mg) ONE (08:35)
[2023-01-21] MEDS ORDERED: Midazolam 2 mg/2 ml VIAL 1 mg/ml 2 ml VIAL (2 mg) ONE (08:35)
[2023-01-21] MEDS ORDERED: fentaNYL 100 mcg/2 ml 50 MCG/ML VIAL ONE (08:35)
[2023-01-21] MEDS ORDERED: Ondansetron 4 mg VIAL 2 MG/ML 2 ml VIAL ONE ×2 (08:35→11:10)
[2023-01-21] MEDS ORDERED: Lidocaine 2% PF 5 ML VIAL ONE (08:35)
[2023-01-21] MEDS ORDERED: Scopolamine 1 mg/72hr PATCH ONE (08:55)
[2023-01-21] MEDS ORDERED: Clindamycin 900 MG/50 **NS BAG 900 MG/50 ML BAG ONE (08:56)
[2023-01-21] MEDS ORDERED: Heparin 5000 UNITS/ML 1 mL VIAL ONE (08:56)
[2023-01-21 09:13] LABS: Rapid COVID-19 Molecular Undetected (Undetected)
[2023-01-21] MEDS ORDERED: Bupivacaine 0.25% EPI 200,000 30 ML SDV ONE (09:37)
[2023-01-21] MEDS ORDERED: Methylene Blue 0.5 % 50 MG/10 ML AMP IV ONE (09:37)
[2023-01-21] MEDS ORDERED: HYDROmorphone 0.5 MG/0.5 ML SYRINGE ONE (10:40)
[2023-01-21] MEDS ORDERED: fentaNYL 250 mcg/5 ml 50 MCG/ML 5 ml VIAL (250 MCG) ONE (10:43)
[2023-01-21] MEDS ORDERED: HYDROmorphone 0.5 MG/0.5 ML SYRINGE IV SLOW PU PRN (12:22)
[2023-01-21] MEDS ORDERED: HYDROcodone/ACET. 7.5/325 LIQ 15 ML UDC PO PRN (12:22)
[2023-01-21] MEDS ORDERED: Prochlorperazine 5 mg/ml 2 ml VIAL (10 mg) ONE (12:26)
[2023-01-21] MEDS ORDERED: HYDROmorphone 1 MG/1 ML SYRINGE ONE (13:03)
[2023-01-21] MEDS: Lactated Ringers 1000 ml BAG 1,000 ML IV SCH ×2 (14:37→21:13)
[2023-01-21] MEDS: Ondansetron 4 mg VIAL 2 MG/ML 2 ml VIAL IV PRN (17:38)
[2023-01-21] MEDS: Heparin 5000 UNITS/ML 1 mL VIAL SUBCUT SCH (21:09)
[2023-01-22] MEDS: Lactated Ringers 1000 ml BAG 1,000 ML IV SCH (04:08)
[2023-01-22] MEDS: Heparin 5000 UNITS/ML 1 mL VIAL SUBCUT SCH ×2 (06:27→16:16)
[2023-01-22] MEDS ORDERED: Insulin GLARGINE 100 un/ml 10 ml VIAL SUBCUT ONE (08:38)
[2023-01-22] MEDS ORDERED: D5W 1/2 NS KCl 20 meq 1000 ml 1,000 ML IV SCH (13:00)
[2023-01-22 17:54] LABS: Hematocrit 26.6 % (35-45)
[2023-01-22] MEDS ORDERED: Dextrose 50% Syringe 50 ml 25 GM/50 ML SYRINGE IV PUSH PRN (19:41)
[2023-01-22] MEDS: Ondansetron 4 mg VIAL 2 MG/ML 2 ml VIAL IV PRN (21:01)
[2023-01-22 21:34] LABS: Hematocrit 24.1 % (35-45); Hemoglobin 8.2 g/dL (11.5-14.3); Mean Corpuscular Hemoglobin 29.8 pg (27-33); Mean Corpuscular Volume 87.5 fL (80-97); Mean Platelet Volume 10.1 fL (7.5-11.2); Platelet Count 247 10^3/uL (150-450); Red Blood Count 2.76 10^6/uL (3.63-4.92); Red Cell Distribution Width 14.4 % (12-17); White Blood Count 11.4 10^3/uL (3.8-11.8)
[2023-01-22 21:40] LABS: INR 1.32 (0.88-1.18)
[2023-01-22] MEDS: D5W 1/2 NS KCl 20 meq 1000 ml 1,000 ML IV SCH (22:50)
[2023-01-23 05:54] LABS: Hematocrit 18.4 % (35-45); Hemoglobin 6.5 g/dL (11.5-14.3)
[2023-01-23 13:23] LABS: Hematocrit 25.7 % (35-45); Hemoglobin 8.9 g/dL (11.5-14.3)
[2023-01-23] MEDS: D5W 1/2 NS KCl 20 meq 1000 ml 1,000 ML IV SCH (14:00)
[2023-01-23 19:03] LABS: Hematocrit 24.7 % (35-45); Hemoglobin 8.5 g/dL (11.5-14.3)
[2023-01-24] MEDS: D5W 1/2 NS KCl 20 meq 1000 ml 1,000 ML IV SCH ×2 (02:40→18:25)
[2023-01-24 06:56] LABS: Hematocrit 20.1 % (35-45); Hemoglobin 7.1 g/dL (11.5-14.3)
[2023-01-24 15:36] LABS: Hematocrit 24.2 % (35-45); Hemoglobin 8.5 g/dL (11.5-14.3)
[2023-01-25 06:29] LABS: Hematocrit 22.2 % (35-45); Hemoglobin 7.7 g/dL (11.5-14.3)
[2023-01-25] MEDS: D5W 1/2 NS KCl 20 meq 1000 ml 1,000 ML IV SCH (07:15)
[2023-01-25] MEDS: Insulin GLARGINE 100 un/ml 10 ml VIAL SUBCUT SCH (12:26)
[2023-01-25 18:43] LABS: Hematocrit 22.3 % (35-45); Hemoglobin 7.9 g/dL (11.5-14.3)
[2023-01-26 06:56] LABS: Hematocrit 22.5 % (35-45); Hemoglobin 7.9 g/dL (11.5-14.3)
[2023-01-26 10:41] VITALS: BP 166/78
[2023-01-26] MEDS: Insulin GLARGINE 100 un/ml 10 ml VIAL SUBCUT SCH (10:58)
== END 2023-01-26 14:05 | disposition home or self-care (01) | DRG 403 ==
LOC: AA 01-21 08:17 → SSU 01-21 12:22
PROVIDERS: ADMIT Surgery; ATTEND Surgery